=== PATIENT | male | born 1935 | race Caucasian/White ===

== ENCOUNTER 2020-08-13 11:19 | Outpatient (REF) | payer MEDICARE, SELFPAY | END 2020-08-13 11:20 | disposition home or self-care (01) | LOC: HO.WFDLDS 11:19 | PROVIDERS: Visit Provider Internal Medicine | DX: Z20.828 Contact with and (suspected) exposure to other viral communicable diseases (principal) | CPT/HCPCS: C9803; U0003 ==

== ENCOUNTER 2022-11-17 09:35 | Outpatient (REF) | payer MEDICARE, BC, SELFPAY ==
--- NOTE | ~2022-11-17 | XR_ITS ---
EXAMINATION: XR KNEE, RIGHT XR KNEE, LEFT XR KNEE STANDING, BILATERAL CLINICAL INDICATION: Pain. COMPARISON: None available. TECHNIQUE: 2 views AP bilateral knee standing. 2 views of each knee. FINDINGS: AP BILATERAL KNEE STANDING: There is genu varus deformity of both knees with severe loss of medial compartment joint space and periarticular spurring. There is [id number] articulation of the medial compartments. The lateral compartment joint is minimally reduced. No acute fracture or loose body seen. RIGHT KNEE: There is moderate loss of patellofemoral compartment joint space with superior patellar spurring. There is small suprapatellar joint effusion. No loose bodies seen. LEFT KNEE: There is loss of patellofemoral compartment joint space with periarticular spurring. No loose body seen. There is mild suprapatellar joint effusion. No acute fracture or dislocation. XR/XR knee RT 2V IMPRESSION: 1. Severe degenerative arthritic changes medial compartment both knees with genu varus deformity. 2. Moderate degenerative arthritic changes patellofemoral compartment both knees with mild suprapatellar joint effusion. 3. There is no visible acute fracture, dislocation or lytic process seen.
--- NOTE | ~2022-11-17 | XR_ITS ---
EXAMINATION: XR KNEE, RIGHT XR KNEE, LEFT XR KNEE STANDING, BILATERAL CLINICAL INDICATION: Pain. COMPARISON: None available. TECHNIQUE: 2 views AP bilateral knee standing. 2 views of each knee. FINDINGS: AP BILATERAL KNEE STANDING: There is genu varus deformity of both knees with severe loss of medial compartment joint space and periarticular spurring. There is [id number] articulation of the medial compartments. The lateral compartment joint is minimally reduced. No acute fracture or loose body seen. RIGHT KNEE: There is moderate loss of patellofemoral compartment joint space with superior patellar spurring. There is small suprapatellar joint effusion. No loose bodies seen. LEFT KNEE: There is loss of patellofemoral compartment joint space with periarticular spurring. No loose body seen. There is mild suprapatellar joint effusion. No acute fracture or dislocation. XR/XR knee standing BI IMPRESSION: 1. Severe degenerative arthritic changes medial compartment both knees with genu varus deformity. 2. Moderate degenerative arthritic changes patellofemoral compartment both knees with mild suprapatellar joint effusion. 3. There is no visible acute fracture, dislocation or lytic process seen.
--- NOTE | ~2022-11-17 | XR_ITS ---
EXAMINATION: XR KNEE, RIGHT XR KNEE, LEFT XR KNEE STANDING, BILATERAL CLINICAL INDICATION: Pain. COMPARISON: None available. TECHNIQUE: 2 views AP bilateral knee standing. 2 views of each knee. FINDINGS: AP BILATERAL KNEE STANDING: There is genu varus deformity of both knees with severe loss of medial compartment joint space and periarticular spurring. There is [id number] articulation of the medial compartments. The lateral compartment joint is minimally reduced. No acute fracture or loose body seen. RIGHT KNEE: There is moderate loss of patellofemoral compartment joint space with superior patellar spurring. There is small suprapatellar joint effusion. No loose bodies seen. LEFT KNEE: There is loss of patellofemoral compartment joint space with periarticular spurring. No loose body seen. There is mild suprapatellar joint effusion. No acute fracture or dislocation. XR/XR knee LT 2V IMPRESSION: 1. Severe degenerative arthritic changes medial compartment both knees with genu varus deformity. 2. Moderate degenerative arthritic changes patellofemoral compartment both knees with mild suprapatellar joint effusion. 3. There is no visible acute fracture, dislocation or lytic process seen.
== END 2022-11-17 09:36 | disposition home or self-care (01) ==
LOC: HO.HOSX 09:35
PROVIDERS: PCP Internal Medicine; Visit Provider Orthopaedic Surgery
DX: M17.0 Bilateral primary osteoarthritis of knee (principal); E11.9 Type 2 diabetes mellitus without complications; M21.169 Varus deformity, not elsewhere classified, unspecified knee
CPT/HCPCS: 20610; 73560; 73565; 99202; J1100

== ENCOUNTER 2023-05-14 14:53 | Outpatient (AMB) | payer MEDICARE, BC, SELFPAY ==
--- NOTE | 2023-05-14 15:02 | A.OFFVIS_ITS ---
Intake Intake Visit Reasons: ov- B/L Knee OA Intake Note: The patient agreed to use of a medical office professional instructor during this encounter. Scribed for Dr. Niko Freitas by Sarah Sneed medical office professional instructor, on 05/14/2023 at 3:10 pm EST. Diaz is an 87 year old male who presents today for a follow up of his bilateral knee OA. Last injection done 11/17/22. Pateint reports adequate releif and would like to repeat. Allergies lisinopril Allergy (Verified 11/17/22 09:55) Unknown HPI ov- B/L Knee OA HPI Details Joe Guzman is an 87 year old male who presents today for a follow up of his bilateral knee OA. States he walks regularly and stairs can be challenging. Reports injections has helped him in the past. Sd is interested injections today. [facility] Social History (Updated 11/17/22 @ 10:05 by Emerald Tejada [facility]) Current occupational status: retired and disabled Current occupation: rt hand Physical Exam Const General: cooperative, healthy appearing, no acute distress, well developed and alert HEENT Head: Yes normal to inspection, Yes normocephalic and Yes atraumatic Mouth: moist mucous membranes Eyes General: appearance normal, both eyes and all related structures EOM: EOMs intact bilaterally Chest Other: no audible wheezing. Resp Other: No audible wheezing Effort & Inspection: normal respiratory effort Cardio Other: Radial pulse palpable with no rythmic abnormalities Back/Spine/Pelvis Cervical Spine: normal cervical lordosis Skin General skin exam: no rashes or lesions noted Neuro General: no focal motor deficits Extrem Other: Varus bilateral knees. Medial compartment tenderness to palpation left greater than right. 10-120 degrees motion. No acute discomfort. Psych Appearance: grossly normal and well kempt Mental Status: mental status grossly normal Speech and movement: Normal speech and movement present Affect: normal affect Attitude: cooperative Office Procedures Joint Injection/Drain Joint Injection/Drain Details: Injected 1 mL of Decadron and 3 mL 1% lidocaine and 3 mL of 0.25% Marcaine. Site was prepped using aseptic technique. Patient tolerated the procedure well. Primary Site: right knee Secondary Site: left knee Coding - Large joint - Glenohumeral/Tronchanteric Bursa/Intraarticular Procedure code (CPT) selection complete Results Reviewed Results Reviewed: 05/14/23 15:04 BUPivacaine MPF 0.25 % [Sensorcaine-MPF 0.25% 10 ML] 10 ml .ROUTE .STK-MED ONE Lidocaine HCl 1 % [Xylocaine 1 %] 2 ml .ROUTE .STK-MED ONE Lidocaine HCl 2 % MPF [Xylocaine 2 % MPF] 5 ml .ROUTE .STK-MED ONE 05/14/23 15:05 dexAMETHasone sod phosphate [Decadron] 4 mg .ROUTE .STK-MED ONE I personally reviewed relevant radiographs. Severe bilateral knee OA, varus pattern Assessment & Plan Assessment & Plan (1) Osteoarthritis of left knee: Code(s): M17.12 - Unilateral primary osteoarthritis, left knee Plan: I injected his left knee today. (2) Osteoarthritis of right knee: Code(s): M17.11 - Unilateral primary osteoarthritis, right knee Plan: I injected his right knee today. (3) Varus deformity of knee: Code(s): M21.169 - Varus deformity, not elsewhere classified, unspecified knee Plan: Severe bilateral knee OA with deformity. Not a surgical candidate given age and relative paucity of symptoms (4) Diabetes mellitus: Code(s): E11.9 - Type 2 diabetes mellitus without complications Plan: Informed of the hyperglycemic effects of steroid injections. Coding Level of Care Code Est Pt Level 4 (04332) Diagnoses Osteoarthritis of left knee M17.12 Osteoarthritis of right knee M17.11 Varus deformity of knee M21.169 Diabetes mellitus E11.9 CPT Codes Coding - 12067 Large joint: 25140 - Large joint ([id number]) Coding - Joint 7: 12989 - Glenohumeral/Tronchanteric Bursa/Intraarticular ([id number])
== END 2023-05-14 16:05 | disposition home or self-care (01) ==
PROVIDERS: PCP Internal Medicine; Visit Provider Orthopaedic Surgery
DX: M17.0 Bilateral primary osteoarthritis of knee (principal); M21.169 Varus deformity, not elsewhere classified, unspecified knee; E11.9 Type 2 diabetes mellitus without complications
CPT/HCPCS: 20610

== ENCOUNTER → 2023-05-14 14:53 | Outpatient (BNVA) | payer MEDICARE, BC, SELFPAY | PROVIDERS: PCP Internal Medicine; Visit Provider Orthopaedic Surgery | DX: M17.12 Unilateral primary osteoarthritis, left knee (principal); M17.11 Unilateral primary osteoarthritis, right knee; M21.169 Varus deformity, not elsewhere classified, unspecified knee; E11.9 Type 2 diabetes mellitus without complications | CPT/HCPCS: 20610; J1100 ==

== ENCOUNTER 2023-09-27 09:01 | Outpatient (AMB) | payer MEDICARE, BC, SELFPAY ==
--- NOTE | 2023-09-27 09:07 | A.OFFVIS_ITS ---
Intake Intake Visit Reasons: OV - Severe B/L Knee OA - Last Inj 05/14/23 Intake Note: Joe is a 88 year old male who presents today for a follow up of his severe bilateral knee osteoarthritis. Hx of DM. Last injections done bilaterally on 05/14/2023. Patient would like to repeat injections on both of the knees today. Allergies lisinopril Allergy (Verified 11/17/22 09:55) Unknown HPI OV - Severe B/L Knee OA - Last Inj 05/14/23 HPI Details Joe is an 88 year old Diabetic man who returns today for a follow up of his bilateral knee OA. He says he walks regularly and stairs can be challenging for him. He reports injections has helped him in the past, he was last injected bilaterally on 05/14/23. He is interested in repeat injections today. [facility] Social History Current occupational status: retired and disabled Current occupation: rt hand Review of Systems Const All systems reviewed & are unremarkable except as noted in HPI and below Physical Exam Const General: no acute distress, alert and awake Orientation/consciousness: patient oriented x3 HEENT Head: Yes normocephalic and Yes atraumatic Eyes EOM: EOMs intact bilaterally Resp Effort & Inspection: normal respiratory effort and able to speak in complete sentences Cardio Jugular venous distension: no JVD Skin General skin exam: turgor normal Rashes: no rashes Neuro General: patient oriented x3 Extrem Other: skin c/d/i bilateral knees. There is tenderness to palpation along the medial joint line bilaterally. There is no effusion. Psych Appearance: grossly normal Affect: normal affect Attitude: cooperative Office Procedures Joint Injection/Drain Joint Injection/Drain Details: Injected 1 mL of Decadron and 3 mL 1% lidocaine and 3 mL of 0.25% Marcaine. Site was prepped using aseptic technique. Patient tolerated the procedure well. Primary Site: right knee Secondary Site: left knee Approach Used: anterolateral Coding - Large joint - Glenohumeral/Tronchanteric Bursa/Intraarticular Procedure code (CPT) selection complete Assessment & Plan Assessment & Plan (1) Osteoarthritis of left knee: Code(s): M17.12 - Unilateral primary osteoarthritis, left knee Plan: Injected bilateral knees (2) Osteoarthritis of right knee: Code(s): M17.11 - Unilateral primary osteoarthritis, right knee (3) Diabetes mellitus: Code(s): E11.9 - Type 2 diabetes mellitus without complications Plan: Informed patient of the hyperglycemic effects of steroids. Plan Prepared for Niko Freitas MD by Mike Francisco, medical affairs leader, on 09/27/23 at 9:12 AM, EST. Coding Level of Care Code Est Pt Level 4 (36571) Diagnoses Osteoarthritis of left knee M17.12 Osteoarthritis of right knee M17.11 Diabetes mellitus E11.9 CPT Codes Coding - 84759 Large joint: 44175 - Large joint ([id number]) Coding - Joint 7: 11759 - Glenohumeral/Tronchanteric Bursa/Intraarticular ([id number])
== END 2023-09-27 09:28 | disposition home or self-care (01) ==
PROVIDERS: PCP Internal Medicine; Visit Provider Orthopaedic Surgery
DX: M17.0 Bilateral primary osteoarthritis of knee (principal); E11.9 Type 2 diabetes mellitus without complications
CPT/HCPCS: 20610; 99214

== ENCOUNTER → 2023-09-27 09:01 | Outpatient (BNVA) | payer MEDICARE, BC, SELFPAY | PROVIDERS: PCP Internal Medicine; Visit Provider Orthopaedic Surgery | DX: M17.0 Bilateral primary osteoarthritis of knee (principal); E11.9 Type 2 diabetes mellitus without complications | CPT/HCPCS: 20610; 99212; J0665; J1100 ==

== ENCOUNTER 2023-12-27 09:07 | Outpatient (AMB) | payer MEDICARE, BC, SELFPAY ==
--- NOTE | 2023-12-27 09:21 | MHC.OFFVIS ---
Vital Signs 12/27/23 09:24 Height 5 ft 9 in Weight 160 lb BMI 23.6 Intake Visit Reasons: OV-B/L knee OA- inj. 09/27/23 Allergies lisinopril Allergy (Verified 12/27/23 09:23) Unknown HPI HPI OV-B/L knee OA- inj. 09/27/23: Details: Joe is a 88 year old male who presents today for a follow up of his severe bilateral knee osteoarthritis. Hx of DM. Last injections done bilaterally on 09/27/23. Patients reports last injections were helpful and provided relief for two months. He would like to discuss injections again today. [facility] Social History Current occupational status: retired and disabled Current occupation: rt hand Physical Exam Vital Signs: BMI result Body Mass Index 23.6 Const General: no acute distress, alert and awake Orientation/consciousness: patient oriented x3 HEENT Head: Yes normocephalic and Yes atraumatic Eyes EOM: EOMs intact bilaterally Resp Effort & Inspection: normal respiratory effort and able to speak in complete sentences Cardio Jugular venous distension: no JVD Skin General skin exam: turgor normal Rashes: no rashes Neuro General: patient oriented x3 Extrem Other: skin c/d/i bilateral knees. There is tenderness to palpation along the medial joint line bilaterally. There is no effusion. Psych Appearance: grossly normal Affect: normal affect Attitude: cooperative Office Procedures Joint Injection/Drain Joint Injection/Drain Details: Injected 1 mL of Decadron and 3 mL 1% lidocaine and 3 mL of 0.25% Marcaine. Site was prepped using aseptic technique. Patient tolerated the procedure well. Primary Site: right knee Secondary Site: left knee Approach Used: anterolateral Coding - Large joint - Glenohumeral/Tronchanteric Bursa/Intraarticular Procedure code (CPT) selection complete Results Reviewed Results Reviewed: I personally reviewed relevant radiographs. Severe bilateral knee OA, varus pattern Assessment & Plan Assessment & Plan (1) Osteoarthritis of left knee: Code(s): M17.12 - Unilateral primary osteoarthritis, left knee Category: Medical Plan: Injected bilateral knees (2) Osteoarthritis of right knee: Code(s): M17.11 - Unilateral primary osteoarthritis, right knee Category: Medical (3) Diabetes mellitus: Code(s): E11.9 - Type 2 diabetes mellitus without complications Category: Medical Plan: Informed patient of the hyperglycemic effects of steroids. Plan Prepared for Niko Freitas MD by Mike Francisco, medical insurance verifier, on 09/27/23 at 9:12 AM, EST. Coding Level of Care Code Est Pt Level 3 (21645) Diagnoses Osteoarthritis of left knee M17.12 Osteoarthritis of right knee M17.11 Diabetes mellitus E11.9 CPT Codes Coding - 57706 Large joint: 70901 - Large joint ([id number]) Coding - Joint 7: 30066 - Glenohumeral/Tronchanteric Bursa/Intraarticular ([id number])
[2023-12-27 09:24] VITALS: BMI 23.6
== END 2023-12-27 09:44 | disposition home or self-care (01) ==
PROVIDERS: PCP Internal Medicine; Visit Provider Orthopaedic Surgery
DX: M17.0 Bilateral primary osteoarthritis of knee (principal); E11.9 Type 2 diabetes mellitus without complications
CPT/HCPCS: 20610

== ENCOUNTER → 2023-12-27 09:07 | Outpatient (BNVA) | payer MEDICARE, BC, SELFPAY | PROVIDERS: PCP Internal Medicine; Visit Provider Orthopaedic Surgery | DX: M17.0 Bilateral primary osteoarthritis of knee (principal); E11.9 Type 2 diabetes mellitus without complications | CPT/HCPCS: 20610; J0665; J1100 ==

== ENCOUNTER 2024-03-04 09:03 | Outpatient (AMB) | payer MEDICARE, BC, SELFPAY ==
[2024-03-04 09:43] VITALS: BP 120/65; PULSE 56; RESP 12; O2SAT 97; BMI 24.6
--- NOTE | 2024-03-04 09:43 | MHC.PC.OV ---
Vital Signs 03/04/24 09:43 Height 5 ft 6 in Weight 152 lb 4 oz BMI 24.6 BP 120/65 Blood Pressure Location Rt brachial Position Sitting Respiration 12 Pulse 56 Pulse Source Pulse Oximeter Pulse Oximetry (%) 97 Oxygen Delivery Method Room Air Intake Visit Reasons: NILO from [facility] Intake Note: Patient is here with his for a transfer [facility] care [facility] to [facility] [place]. Handstitching Machine Collar Feller Required: No Accompanied by: Spouse Allergies lisinopril Allergy (Verified 12/27/23 09:23) Unknown Tobacco use date assessed: 03/04/24 Fall risk assessment: No Falls in past year Last assessed Fall Risk: 03/04/24 Dental Screening Dental Screen Date: 03/04/24 Did you have a dental visit in the last 12 months?: No Did you have a dental problem in the last 6 months where you did not have access to dental care?: No Was dental information given to patient?: Patient declined HPI HPI Comments History of Present Illness Details The patient is a 87-year-old male with a past medical history of type 2 diabetes, hypertension, CKD, memory loss, AAA repair BPH, skin cancer, osteoarthritis presenting for follow-up Type 2 diabetes: Stable off medications. CKD, AA. Annual eye exam is up-to-date Cardiovascular: Hypertension, AAA hyperlipidemia. On hydrochlorothiazide 25 mg daily, amlodipine 5 mg daily, pravastatin 80 mg daily. Allergy to lisinopril (lip swelling). Denies headache dizziness chest pain. COPD: Follows with pulmonary. Stable on Bevespi. Chronic dyspnea which is stable.Thereafter he underwent chest CT with evidence of moderate emphysema and perhaps chronic bronchitis. Memory loss: Increased memory loss. continues donepezil. His helps him to take care of his medications etc.. He does have bilateral cerumen impaction when can decrease his hearing. Musculoskeletal: Bilateral knee pain. Moderate to severe OA. Not Orthopedics and a steroid injection which he did not found helpful. Takes Tylenol p.r.n. uses topical analgesic ROS CONSTITUTIONAL: Denies weight loss, fever and chills. HEENT: right eye discharge and itching RESPIRATORY: Denies SOB and cough. CV: Denies palpitations and CP GI: Denies abdominal pain, nausea, vomiting and diarrhea. : Denies dysuria and urinary frequency. MSK: Denies new myalgia and joint pain. SKIN: Denies rash and pruritus. NEUROLOGICAL: Denies headache PSYCHIATRIC: Denies recent changes in mood. PHYSICAL EXAM: GENERAL: Alert and oriented x 3. NAD EYES: EOMI. Anicteric. HENT: Moist mucous membranes. mild scleral icterus. crust and exudate-rightNo cervical lymphadenopathy. LUNGS: Clear to auscultation bilaterally. CARDIOVASCULAR: Regular rate and rhythm. No murmur. No JVD. ABDOMEN: Soft, non-tender +bs EXTREMITIES: No edema. Non-tender. SKIN: No rashes or lesions. Warm. NEUROLOGIC: Apparent memory loss PSYCHIATRIC: Cooperative. Appropriate mood and affect [facility] Medical History Aneurysm Surgical History S/P cerebral aneurysm operation Family History Other No pertinent family history Social History Household Members: Spouse Housing: House Are you a primary account executive healthcare to a significant other at home: No Alcohol intake: former Patient Tobacco Use Status: Former Tobacco user Tobacco use type: Cigarette Cigarette Packs Per Day: 1 Cigarettes Per Day: 20 e-Cigarette/Vaping Use: Never Used service: Yes ([employer] 6 years) Current occupational status: retired and disabled Current occupation: rt hand Current occupational exposures/hazards: No Cognitive needs: Yes Hearing needs: Yes Vision needs: Yes (Has an eye doctor) Questionnaire PHQ-9 Over the last 2 weeks, how often have you been bothered by any of the following problems? 1. Little interest or pleasure in doing things: not at all 2. Feeling down, depressed, or hopeless: not at all 3. Trouble falling or staying asleep, or sleeping too much: not at all 4. Feeling tired or having little energy: several days 5. Poor appetite or overeating: several days 6. Feeling bad about yourself - or that you are a failure or have let yourself or your family down: not at all 7. Trouble concentrating on things, such as reading the newspaper or watching television: several days 8. Moving or speaking so slowly that other people could have noticed. Or the opposite - being so fidgety or restless that you have been moving around a lot more than usual: not at all 9. Thoughts that you would be better off or of hurting yourself in some way: not at all Total score: 3 Depression Screening Interpretation: Negative (neg) Depression Screening Done: Yes 55226 - PHQ-9 Billing: Yes Source: Developed by Drs. Pelon Toscano, Silvia Fontana, Quique Rhodes and colleagues, with an educational yael from [employer]. Thrive Questionnaire Date Thrive assessed: 03/04/24 I am a: Patient What is your living situation today?: I have a steady place to live Within the past 12 months, did the food you bought not last and you didn't have the money to get more?: Never true Within the past 12 months, did you worry whether your food would run out before you got money to buy more?: Never true Do you have trouble paying for medicines?: I choose not to answer this question Do you have trouble getting transportation to medical appointments?: I choose not to answer this question Do you have trouble paying your heating and electricity bill?: I choose not to answer this question Do you have trouble taking care of your child, family member or friend?: I choose not to answer this question Do you have trouble with day-to-day activities such as bathing, preparing meals, shopping, managing finances, etc.?: I choose not to answer this question Are you currently unemployed and looking for a job?: I choose not to answer this question Are you interested in more education?: I choose not to answer this question Please select the resources that you would like help with: None Currently or been in a relationship where the following occur: No concerns reported THRIVE Score: 0 AUDIT C Alcohol Use Questionnaire (AUDIT-C) 1. How often do you have a drink containing alcohol?: Never 3. How often do you have six or more drinks on one occasion?: Never Total Score: 0 LEWIS-7 AMB Questionnaire LEWIS-7 Date LEWIS - 7 assessed: 03/04/24 Source: Developed by Drs. Pelon Toscano, Silvia Fontana, Quique Rhodes and colleagues, with an educational yael from [employer]. LEWIS-7 Assessment Billing LEWIS-7 Assessment Tool: pt declined-do not bill Physical exam (Primary Care) Vital Signs: Last Vital Signs Pulse 56 03/04/24 09:43 Resp 12 03/04/24 09:43 BP 120/65 03/04/24 09:43 Pulse Ox 97 03/04/24 09:43 Oxygen Delivery Method Room Air 03/04/24 09:43 BMI result Body Mass Index 24.6 Tobacco/Smoking Status: Tobacco use Status Tobacco use date assessed 03/04/24 03/04/24 09:54 Patient Tobacco Use Status Former Tobacco user 03/04/24 09:54 Tobacco use type Cigarette 03/04/24 09:54 e-Cigarette/Vaping Use Never Used 03/04/24 09:54 Depression Screening Interpretation: Negative (neg) Thrive Assessment: Date of Thrive Assessment Date Thrive assessed 03/04/24 03/04/24 10:09 Currently or been in a relationship where the following occur: No concerns reported Assessment and Plan Assessment & Plan (1) Diabetes mellitus: Code(s): E11.9 - Type 2 diabetes mellitus without complications Qualifiers: Chronic kidney disease stage: stage 3 (moderate) Chronic kidney disease stage 3 subtype: unspecified whether 3a or 3b Diabetes mellitus complication detail: with chronic kidney disease Diabetes mellitus complication status: with kidney complications Diabetes mellitus group home insulin use: without terminal operations supervisor use Diabetes mellitus type: type 2 Qualified Code(s): E11.22 - Type 2 diabetes mellitus with diabetic chronic kidney disease; N18.30 - Chronic kidney disease, stage 3 unspecified Plan: well controlled. labs ordered. (2) High cholesterol: Code(s): E78.00 - Pure hypercholesterolemia, unspecified (3) Osteoarthritis of left knee: Code(s): M17.12 - Unilateral primary osteoarthritis, left knee Qualifiers: Osteoarthritis type: primary Qualified Code(s): M17.12 - Unilateral primary osteoarthritis, left knee (4) Osteoarthritis of right knee: Code(s): M17.11 - Unilateral primary osteoarthritis, right knee Qualifiers: Osteoarthritis type: primary Qualified Code(s): M17.11 - Unilateral primary osteoarthritis, right knee Plan: continue ortho follow up PRN Orders: Orders Hemoglobin A1c Today E11.22 - Type 2 diabetes mellitus with diabetic chronic kidney disease, E78.00 - Pure hypercholesterolemia, unspecified, N18.30 - Chronic kidney disease, stage 3 unspecified, Z13.0 - Encounter for screening for diseases of the blood and blood-forming organs and certain disorders involving the immune mechanism Comprehensive Met. Panel Today E11.22 - Type 2 diabetes mellitus with diabetic chronic kidney disease, E78.00 - Pure hypercholesterolemia, unspecified, N18.30 - Chronic kidney disease, stage 3 unspecified, Z13.0 - Encounter for screening for diseases of the blood and blood-forming organs and certain disorders involving the immune mechanism Complete Blood Count Auto Diff Today E11.22 - Type 2 diabetes mellitus with diabetic chronic kidney disease, E78.00 - Pure hypercholesterolemia, unspecified, N18.30 - Chronic kidney disease, stage 3 unspecified, Z13.0 - Encounter for screening for diseases of the blood and blood-forming organs and certain disorders involving the immune mechanism Medications: New besifloxacin 0.6% administer doses at least 4 hours apart 1 drp ophthalmic-Right TID 5 mL 0RF 7 days Coding Level of Care Code Est Pt Level 4 (75062) Complex EM visit Add On G2211 Diagnoses Type 2 diabetes mellitus with stage 3 chronic kidney disease, without long-term current use of insulin, unspecified whether stage 3a or 3b CKD E11.22; N18.30 Chronic kidney disease stage: stage 3 (moderate) Chronic kidney disease stage 3 subtype: unspecified whether 3a or 3b Diabetes mellitus complication detail: with chronic kidney disease Diabetes mellitus complication status: with kidney complications Diabetes mellitus terminal operations supervisor insulin use: without terminal operations supervisor use Diabetes mellitus type: type 2 High cholesterol E78.00 Primary osteoarthritis of left knee M17.12 Osteoarthritis type: primary Primary osteoarthritis of right knee M17.11 Osteoarthritis type: primary
== END 2024-03-04 10:51 | disposition home or self-care (01) ==
PROVIDERS: PCP Internal Medicine; Visit Provider Internal Medicine
DX: E11.22 Type 2 diabetes mellitus with diabetic chronic kidney disease (principal); N18.30 Chronic kidney disease, stage 3 unspecified; E78.00 Pure hypercholesterolemia, unspecified; M17.0 Bilateral primary osteoarthritis of knee
CPT/HCPCS: 99214; G2211

== ENCOUNTER 2024-03-04 11:13 | Outpatient (REF) | payer MEDICARE, BC, SELFPAY ==
[2024-03-04 13:53] LABS: MANUAL DIFF FLAG NO
[2024-03-04 14:02] LABS: Basophils Percent Auto 0.2 % (0-2); Eosinophils Absolute Auto 0.1 X10*3/uL (0.0-0.4); Eosinophils Percent Auto 1.2 % (0-4); Hematocrit 36.4 % (42.0-52.0); Hemoglobin 12.2 g/dl (14.0-18.0); Imm Gran Abs Auto 0.02 X10*3/uL (0.00-0.03); Imm Gran Pct Auto 0.4 % (0.0-0.4); Lymphocytes Absolute Auto 0.9 X10*3/uL (1.2-4.9); Mean Corpuscular HGB Conc 33.5 g/dl (31.0-36.0); Mean Corpuscular Hemoglobin 31.9 pg (27.0-33.0); Mean Corpuscular Volume 95.3 fL (80.0-98.0); Mean Platelet Volume 10.5 fL (9.4-12.4); Monocytes Absolute Auto 0.5 X10*3/uL (0.1-1.2); Monocytes Percent Auto 9.3 % (2-11); Neutrophils Absolute Auto 4.2 x10*3/uL (2.0-8.3); Neutrophils Percent Auto 73.9 % (45-73); Platelet Count 169 X10*3/uL (160-400); Red Blood Count 3.82 X10*6/uL (4.60-5.80); Red Cell Distribution Width 12.3 % (11.0-16.0); White Blood Count 5.7 X10*3/uL (4.8-10.8)
[2024-03-04 14:15] LABS: Estimated Average Glucose 123 mg/dL; Hemoglobin A1c % 5.9 % (<6.0)
[2024-03-04 14:16] LABS: Alanine Aminotransferase 14 U/L (0-40); Albumin Level 3.9 g/dL (3.5-5.0); Alkaline Phosphatase 58 U/L (39-117); Anion Gap 12 (12-20); Aspartate Amino Transferase 24 U/L (5-37); Bilirubin Total 0.6 mg/dL (0.0-1.0); Blood Urea Nitrogen 23 mg/dL (9-16); Calcium 9.4 mg/dL (8.4-10.2); Carbon Dioxide 29 mmol/L (22-29); Chloride 97 mmol/L (96-108); Estimated Glomerular Filt Rate > 60; Glucose Random 87 mg/dL (60-115); Potassium 3.8 mmol/L (3.3-5.1); Sodium 134 mmol/L (135-145); Total Protein 6.8 g/dL (6.5-8.0)
== END 2024-03-04 11:14 | disposition home or self-care (01) ==
LOC: HO.WFDLDS 11:13
PROVIDERS: Visit Provider Internal Medicine
DX: E11.22 Type 2 diabetes mellitus with diabetic chronic kidney disease (principal); N18.30 Chronic kidney disease, stage 3 unspecified; E78.00 Pure hypercholesterolemia, unspecified; Z13.0 Encounter for screening for diseases of the blood and blood-forming organs and certain disorders involving the immune mechanism
CPT/HCPCS: 36415; 80053; 83036; 85025

== ENCOUNTER 2024-03-28 08:40 | Outpatient (AMB) | payer MEDICARE, BC, SELFPAY ==
--- NOTE | 2024-03-28 09:07 | A.OFFVIS_ITS ---
Vital Signs 03/28/24 09:08 Height 5 ft 6 in Weight 162 lb BMI 26.1 Intake Visit Reasons: OV-B/L knee OA- inj. last inj. 12/27/23 Intake Note: Joe is an 88 year old male who presents today with yang for a follow up of his bilateral knee OA, last injections were done on 12/27/2023. Hx of DM. Patient reports that this injection was helpful but only for about 1 month. He is interested in haing Gel injections. Allergies lisinopril Allergy (Verified 12/27/23 09:23) Unknown HPI HPI OV-B/L knee OA- inj. last inj. 12/27/23: Details: Joe is here for bilateral knee osteoarthritis. He had injections about 3 months ago which were helpful for about a month. He continues to have pain. We have had long discussions about treatment options and surgery is not something that we have decided feels appropriate. [facility] Medical History Aneurysm Surgical History S/P cerebral aneurysm operation Family History Other No pertinent family history Social History Household Members: Spouse Housing: House Are you a primary primary care provider to a significant other at home: No 75 years or older and lives alone: No Alcohol intake: former Patient Tobacco Use Status: Former Tobacco user Tobacco use type: Cigarette Cigarette Packs Per Day: 1 Cigarettes Per Day: 20 e-Cigarette/Vaping Use: Never Used service: Yes ([employer] 6 years) Current occupational status: retired and disabled Current occupation: rt hand Current occupational exposures/hazards: No Cognitive needs: Yes Hearing needs: Yes Vision needs: Yes (Has an eye doctor) Physical Exam Vital Signs: BMI result Body Mass Index 26.1 Const General: no acute distress, alert and awake Orientation/consciousness: patient oriented x3 HEENT Head: Yes normocephalic and Yes atraumatic Eyes EOM: EOMs intact bilaterally Resp Effort & Inspection: normal respiratory effort and able to speak in complete sentences Cardio Jugular venous distension: no JVD Skin General skin exam: turgor normal Rashes: no rashes Neuro General: patient oriented x3 Extrem Other: skin c/d/i bilateral knees. There is tenderness to palpation along the medial joint line bilaterally. There is no effusion. Psych Appearance: grossly normal Affect: normal affect Attitude: cooperative Office Procedures Joint Injection/Aspiration Joint Injection/Aspiration Details: Injected Durolane. Site was prepped using aseptic technique. Patient tolerated the procedure well. Primary Site: right knee Secondary Site: left knee Approach Used: anterolateral Coding - Large joint - Glenohumeral/Tronchanteric Bursa/Intraarticular Procedure code (CPT) selection complete Assessment & Plan Assessment & Plan (1) Bilateral primary osteoarthritis of knee: Code(s): M17.0 - Bilateral primary osteoarthritis of knee Category: Medical Plan: This is an 88-year-old gentleman with bilateral knee osteoarthritis. Steroid injections have been minimally helpful and we discussed other treatment options. I recommend viscosupplementation. He agreed to proceed forward with this. Bilateral knees were injected with dural riley. I described what his expectations should be an he can follow up see me and an as-needed basis. Coding Level of Care Code Est Pt Level 4 (45179) Diagnoses Bilateral primary osteoarthritis of knee M17.0 CPT Codes Coding - Large joint: 39307 - Large joint ([id number]) Coding - Joint 7: 44880 - Glenohumeral/Tronchanteric Bursa/Intraarticular ([id number])
[2024-03-28 09:08] VITALS: BMI 26.1
== END 2024-03-28 10:16 | disposition home or self-care (01) ==
PROVIDERS: PCP Internal Medicine; Visit Provider Orthopaedic Surgery
DX: M17.0 Bilateral primary osteoarthritis of knee (principal)
CPT/HCPCS: 20610; 99213

== ENCOUNTER → 2024-03-28 08:40 | Outpatient (BNVA) | payer MEDICARE, BC, SELFPAY | PROVIDERS: PCP Internal Medicine; Visit Provider Orthopaedic Surgery | DX: M17.0 Bilateral primary osteoarthritis of knee (principal) | CPT/HCPCS: 20610; 99212; J7318 ==

== ENCOUNTER 2024-06-16 13:17 | Outpatient (AMB) | payer MEDICARE, BC, SELFPAY ==
[2024-06-16 13:19] VITALS: BP 122/70; PULSE 75; O2SAT 95; BMI 23.4
--- NOTE | 2024-06-16 13:19 | MHC.PC.OV ---
Vital Signs 06/16/24 13:19 Height 5 ft 6 in Weight 145 lb 4 oz BMI 23.4 BP 122/70 Blood Pressure Location Rt brachial Position Sitting Pulse 75 Pulse Source Pulse Oximeter Pulse Oximetry (%) 95 Oxygen Delivery Method Room Air Intake Visit Reasons: MEDICAL RADIATION DOSIMETRIST-Establish Care Allergies lisinopril Allergy (Verified 06/16/24 13:23) Unknown Tobacco use date assessed: 06/16/24 Fall risk assessment: No Falls in past year Last assessed Fall Risk: 06/16/24 Dental Screening Dental Screen Date: 06/16/24 Did you have a dental visit in the last 12 months?: Yes Did you have a dental problem in the last 6 months where you did not have access to dental care?: No Was dental information given to patient?: Patient has dentist HPI HPI Comments History of Present Illness Details The patient is a 87-year-old male with a past medical history of dementia, type 2 diabetes, hypertension, CKD, memory loss, AAA repair BPH, skin cancer, osteoarthritis presenting for follow-up Type 2 diabetes: Stable off medications. A1C 6.1%. Annual eye exam is up-to-date. Denies bothersome neuropathy Cardiovascular: Hypertension, AAA hyperlipidemia. On hydrochlorothiazide 25 mg daily, amlodipine 5 mg daily, pravastatin 80 mg daily. Allergy to lisinopril (lip swelling). Denies headache dizziness chest pain. Blood pressure is well controlled COPD: Evaluated and was following with pulmonary. Stable on current inhalers.. Chronic dyspnea which is stable. Had prior pfts, chest CT with evidence of moderate emphysema and perhaps chronic bronchitis. Memory loss: Increased memory loss. continues donepezil-5mg His helps him to take care of his medications etc.. He does have bilateral cerumen impaction when can decrease his hearing. This is prevalent today. His has to be home all the time. Looking into getting help in the home Musculoskeletal: Bilateral knee pain. Moderate to severe OA. Has beneifited from steroid injection but recent gel injection was not helpful Takes Tylenol p.r.n. uses topical analgesic. ROS see HPI PHYSICAL EXAM: GENERAL: Alert and oriented x 3. NAD EYES: EOMI. Anicteric. HENT: Moist mucous membranes. normal oropharynx LUNGS: Clear to auscultation bilaterally. CARDIOVASCULAR: Regular rate and rhythm. No murmur. No JVD. ABDOMEN: Soft, non-tender +bs EXTREMITIES: No edema. Non-tender. SKIN: No rashes or lesions. Warm. NEUROLOGIC: Apparent memory loss PSYCHIATRIC: Cooperative. Appropriate mood and affect [facility] Medical History Aneurysm Surgical History S/P cerebral aneurysm operation Family History Other No pertinent family history Social History Household Members: Spouse Housing: House Are you a primary home care and home health aides teacher to a significant other at home: No 75 years or older and lives alone: No Alcohol intake: former Patient Tobacco Use Status: Former Tobacco user Tobacco use type: Cigarette Cigarette Packs Per Day: 1 Cigarettes Per Day: 20 e-Cigarette/Vaping Use: Never Used service: Yes ([employer] 6 years) Current occupational status: retired and disabled Current occupation: rt hand Current occupational exposures/hazards: No Cognitive needs: Yes Hearing needs: Yes Vision needs: Yes (Has an eye doctor) Questionnaire PHQ-9 Over the last 2 weeks, how often have you been bothered by any of the following problems? 1. Little interest or pleasure in doing things: not at all 2. Feeling down, depressed, or hopeless: not at all 3. Trouble falling or staying asleep, or sleeping too much: not at all 4. Feeling tired or having little energy: not at all 5. Poor appetite or overeating: not at all 6. Feeling bad about yourself - or that you are a failure or have let yourself or your family down: not at all 7. Trouble concentrating on things, such as reading the newspaper or watching television: not at all 8. Moving or speaking so slowly that other people could have noticed. Or the opposite - being so fidgety or restless that you have been moving around a lot more than usual: not at all 9. Thoughts that you would be better off or of hurting yourself in some way: not at all Total score: 0 Depression Screening Interpretation: Negative Depression Screening Done: Yes 59669 - PHQ-9 Billing: Yes Source: Developed by Drs. Pelon LSilvia Dodge Kurt Kroenke and colleagues, with an educational yael from [employer]. Thrive Questionnaire Date Thrive assessed: 06/16/24 I am a: Patient What is your living situation today?: I have a steady place to live Within the past 12 months, did the food you bought not last and you didn't have the money to get more?: Never true Within the past 12 months, did you worry whether your food would run out before you got money to buy more?: Never true Do you have trouble paying for medicines?: No Do you have trouble getting transportation to medical appointments?: No Do you have trouble paying your heating and electricity bill?: No Do you have trouble taking care of your child, family member or friend?: I choose not to answer this question Do you have trouble with day-to-day activities such as bathing, preparing meals, shopping, managing finances, etc.?: Yes Are you currently unemployed and looking for a job?: No Are you interested in more education?: No Please select the resources that you would like help with: None Currently or been in a relationship where the following occur: No concerns reported THRIVE Score: 0 AUDIT C Alcohol Use Questionnaire (AUDIT-C) 1. How often do you have a drink containing alcohol?: Never 3. How often do you have six or more drinks on one occasion?: Never Total Score: 0 LEWIS-7 AMB Questionnaire LEWIS-7 Date LEWIS - 7 assessed: 06/16/24 Feeling nervous, anxious, or on edge: 0 = Not at all Not being able to stop or control worryin = Not at all Worrying too much about different things: 0 = Not at all Trouble relaxin = Not at all Being so restless that it is hard to sit still: 0 = Not at all Becoming easily annoyed or irritable: 0 = Not at all Feeling afraid as if something awful might happen: 0 = Not at all Total LEWIS-7 score (0-4 normal; 5-9 mild; 10-14 moderate; 15-21 severe): 0 Source: Developed by Silvia Lux Kurt Kroenke and colleagues, with an educational yael from [employer]. LEWIS-7 Assessment Billing LEWIS-7 Assessment Tool: LEWIS-7 Assessment 62560 Physical exam (Primary Care) Vital Signs: Last Vital Signs Pulse 75 06/16/24 13:19 BP 122/70 06/16/24 13:19 Pulse Ox 95 06/16/24 13:19 Oxygen Delivery Method Room Air 06/16/24 13:19 BMI result Body Mass Index 23.4 Tobacco/Smoking Status: Tobacco use Status Tobacco use date assessed 06/16/24 06/16/24 13:28 Patient Tobacco Use Status Former Tobacco user 06/16/24 13:28 Tobacco use type Cigarette 06/16/24 13:28 e-Cigarette/Vaping Use Never Used 06/16/24 13:28 PHQ-9: PHQ-9 Score PHQ-9: Total score 0 06/16/24 21:52 Depression Screening Interpretation: Negative Thrive Assessment: Date of Thrive Assessment Date Thrive assessed 06/16/24 06/16/24 13:28 Currently or been in a relationship where the following occur: No concerns reported Results AMB Hemoglobin A1c AMB Hemoglobin A1c 6.1 % Last Edit by Nasrin Quach CMA on 06/16/24 13:45 Results Reviewed Results Reviewed: Laboratory Last Values Hgb A1c (Clinic) 6.1 % (4.0-6.0) H 06/16/24 13:43 Coding Level of Care Code Est Pt Level 5 (54397) Diagnoses Memory loss R41.3 Bilateral primary osteoarthritis of knee M17.0 Type 2 diabetes mellitus with stage 3 chronic kidney disease, without long-term current use of insulin, unspecified whether stage 3a or 3b CKD E11.22; N18.30 Chronic kidney disease stage: stage 3 (moderate) Chronic kidney disease stage 3 subtype: unspecified whether 3a or 3b Diabetes mellitus complication detail: with chronic kidney disease Diabetes mellitus complication status: with kidney complications Diabetes mellitus termite treater insulin use: without care home use Diabetes mellitus type: type 2 Arthritis M19.90 Additional Codes LEWIS-7 Assessment Billing - LEWIS-7 Assessment Tool: LEWIS-7 Assessment 98648 ([id number]) Time Spent (min) 45 Assessment & Plan Assessment & Plan (1) Memory loss: Code(s): R41.3 - Other amnesia Category: Medical Plan: Increase donepezil to 10mg daily. referral to memory clinic (2) Bilateral primary osteoarthritis of knee: Code(s): M17.0 - Bilateral primary osteoarthritis of knee Category: Medical Plan: Did not benefit much from gel injections. Has gotten some relief from steroid injections and will consider this again soon (3) Diabetes mellitus: Code(s): E11.9 - Type 2 diabetes mellitus without complications Category: Medical Qualifiers: Chronic kidney disease stage: stage 3 (moderate) Chronic kidney disease stage 3 subtype: unspecified whether 3a or 3b Diabetes mellitus complication detail: with chronic kidney disease Diabetes mellitus complication status: with kidney complications Diabetes mellitus care home insulin use: without care home use Diabetes mellitus type: type 2 Qualified Code(s): E11.22 - Type 2 diabetes mellitus with diabetic chronic kidney disease; N18.30 - Chronic kidney disease, stage 3 unspecified Plan: stable off medications (4) Arthritis: Code(s): M19.90 - Unspecified osteoarthritis, unspecified site Category: Medical Plan: follow up ortho. maryam sent. He should be able to repeat steroid injection sin the near future Orders: Orders AMB Hemoglobin A1c Today Z13.9 - Encounter for screening, unspecified Referrals Psychiatry Referral R41.3 - Other amnesia Medications: New diclofenac sodium 1% (Voltaren Arthritis Pain) apply to single knee, ankle, foot; for foot includes sole/toes/top of foot 4 grams topical QID 100 grams 3RF donepezil 10 mg PO BEDTIME 90 tabs 3RF Discontinued donepezil Discontinued Reason: Doctor's Order 5 mg PO BEDTIME 90 days 90 tabs 3RF
== END 2024-06-16 14:08 | disposition home or self-care (01) ==
PROVIDERS: PCP Internal Medicine; Visit Provider Internal Medicine
DX: R41.3 Other amnesia (principal); M17.0 Bilateral primary osteoarthritis of knee; E11.22 Type 2 diabetes mellitus with diabetic chronic kidney disease; N18.30 Chronic kidney disease, stage 3 unspecified; M19.90 Unspecified osteoarthritis, unspecified site

== ENCOUNTER → 2024-06-16 13:17 | Outpatient (BNVA) | payer MEDICARE, BC, SELFPAY | PROVIDERS: PCP Internal Medicine; Visit Provider Internal Medicine | DX: R41.3 Other amnesia (principal); M17.0 Bilateral primary osteoarthritis of knee; E11.22 Type 2 diabetes mellitus with diabetic chronic kidney disease; I12.9 Hypertensive chronic kidney disease with stage 1 through stage 4 chronic kidney disease, or unspecified chronic kidney disease; N18.30 Chronic kidney disease, stage 3 unspecified; Z79.899 Other long term (current) drug therapy | CPT/HCPCS: 83036; 96127; 99212 ==

== ENCOUNTER → 2024-06-23 14:45 | Outpatient (BNVA) | payer MEDICARE, BC, SELFPAY | PROVIDERS: PCP Internal Medicine; Visit Provider Internal Medicine ==

== ENCOUNTER 2024-12-01 14:14 | Outpatient (AMB) | payer MEDICARE, BC, SELFPAY ==
--- NOTE | 2024-12-01 14:34 | A.OFFPC_ITS ---
Vital Signs 12/01/24 14:42 Height 5 ft 6 in Weight 144 lb 2 oz BMI 23.3 BP 100/56 L Blood Pressure Location Rt brachial Position Sitting Respiration 14 Pulse 62 Pulse Source Pulse Oximeter Pulse Oximetry (%) 95 Oxygen Delivery Method Room Air Intake Visit Reasons: Ear complaints Intake Note: Needs ear flushed. Trying to get hearing aids, and [employer] is declining. Cattle Inspector Required: No Accompanied by: Spouse Allergies lisinopril Allergy (Verified 12/01/24 14:38) Unknown Medication List - Last Reconciled 12/07/24 by Edda Flores MD albuterol sulfate 90 mcg/actuation 2 puffs inhalation Q4-6H PRN amlodipine (Norvasc) 5 mg PO DAILY 90 days aspirin (Adult Low Dose Aspirin) 81 mg PO DAILY besifloxacin 0.6% (Besivance) PUT 1 DROP INTO THE RIGHT EYE 3 TIMES A DAY FOR 7 DAYS ADMINISTER DOSES AT LEAST 4 HOURS APART budesonide-formoterol 80-4.5 mcg/actuation (Symbicort) 2 puffs inhalation BID coenzyme Q10 (Ultra CoQ10) 100 mg PO DAILY diclofenac sodium 1% (Voltaren Arthritis Pain) 4 grams topical QID donepezil 10 mg PO BEDTIME hydrochlorothiazide 25 mg PO DAILY pravastatin 80 mg PO DAILY tamsulosin 0.8 mg PO DAILY Tobacco use date assessed: 12/01/24 Fall risk assessment: No Falls in past year Last assessed Fall Risk: 12/01/24 Dental Screening Dental Screen Date: 12/01/24 Did you have a dental visit in the last 12 months?: No Did you have a dental problem in the last 6 months where you did not have access to dental care?: No Was dental information given to patient?: Patient has dentist HPI HPI Comments History of Present Illness Details The patient is a 89-year-old male with a past medical history of dementia, type 2 diabetes, hypertension, CKD, memory loss, AAA repair BPH, skin cancer, osteoarthritis presenting for follow-up He has been trying to get hearing aids from [employer] but they have been telling him that he has too much wax in his ears. His has been putting debrox drops in and trying to keep them clean. Flushed today and curette empolyed with resolution of right sided cerumen but still some persistent left sided. referral will be placed to ENT however the canals are clear enough he should be able to return to [facility] in the interim Type 2 diabetes: Stable off medications. A1C 6.1%. Annual eye exam is up-to-date. Denies bothersome neuropathy Cardiovascular: Hypertension, AAA hyperlipidemia. On hydrochlorothiazide 25 mg daily, amlodipine 5 mg daily, pravastatin 80 mg daily. Allergy to lisinopril (lip swelling). Denies headache dizziness chest pain. Blood pressure is well controlled COPD: Evaluated and was following with pulmonary. Stable on current inhalers.. Chronic dyspnea which is stable. Had prior pfts, chest CT with evidence of moderate emphysema and perhaps chronic bronchitis. Memory loss: Increased memory loss. continues donepezil-5mg His helps him to take care of his medications etc.. Musculoskeletal: Bilateral knee pain. Moderate to severe OA. Has beneifited from steroid injection but recent gel injection was not helpful Takes Tylenol p.r.n. uses topical analgesic. ROS see HPI PHYSICAL EXAM: GENERAL: Alert and oriented x 3. NAD EYES: EOMI. Anicteric. HENT: Moist mucous membranes. normal oropharynx LUNGS: Clear to auscultation bilaterally. CARDIOVASCULAR: Regular rate and rhythm. No murmur. No JVD. ABDOMEN: Soft, non-tender +bs EXTREMITIES: No edema. Non-tender. SKIN: No rashes or lesions. Warm. NEUROLOGIC: Apparent memory loss PSYCHIATRIC: Cooperative. Appropriate mood and affect [facility] Medical History Aneurysm Surgical History S/P cerebral aneurysm operation Family History Sister Dementia Sister Dementia Other FH: mental illness No pertinent family history Substance abuse Social History Household Members: Spouse Housing: House Are you a primary healthcare administration internship to a significant other at home: No 75 years or older and lives alone: No Alcohol intake: former Patient Tobacco Use Status: Former Tobacco user Tobacco use type: Cigarette Cigarette Packs Per Day: 1 Cigarettes Per Day: 20 Years Smoked: 20 e-Cigarette/Vaping Use: Never Used Second Hand Smoke Exposure: No service: Yes ([employer] 6 years) Current occupational status: retired and disabled Current occupation: rt hand Current occupational exposures/hazards: No Cognitive needs: Yes (Dementia) Hearing needs: Yes (need hearing aids) Vision needs: Yes (Has an eye doctor) Questionnaire PHQ-9 Over the last 2 weeks, how often have you been bothered by any of the following problems? 1. Little interest or pleasure in doing things: several days 2. Feeling down, depressed, or hopeless: several days 3. Trouble falling or staying asleep, or sleeping too much: nearly every day 4. Feeling tired or having little energy: several days 5. Poor appetite or overeating: not at all 6. Feeling bad about yourself - or that you are a failure or have let yourself or your family down: not at all 7. Trouble concentrating on things, such as reading the newspaper or watching television: more than half the days 8. Moving or speaking so slowly that other people could have noticed. Or the opposite - being so fidgety or restless that you have been moving around a lot more than usual: several days 9. Thoughts that you would be better off or of hurting yourself in some way: not at all Total score: 9 Depression Screening Interpretation: Positive Depression Screening Follow-up: Declines treatment Depression Screening Done: Yes 26149 - PHQ-9 Billing: Yes Source: Developed by Drs. Pelon Toscano, Silvia Fontana, Quique Rhodes and colleagues, with an educational yael from [employer]. Thrive Questionnaire Date Thrive assessed: 06/16/24 I am a: Patient What is your living situation today?: I have a steady place to live Within the past 12 months, did the food you bought not last and you didn't have the money to get more?: Never true Within the past 12 months, did you worry whether your food would run out before you got money to buy more?: Never true Do you have trouble paying for medicines?: No Do you have trouble getting transportation to medical appointments?: No Do you have trouble paying your heating and electricity bill?: No Do you have trouble taking care of your child, family member or friend?: Yes Do you have trouble with day-to-day activities such as bathing, preparing meals, shopping, managing finances, etc.?: I choose not to answer this question Are you currently unemployed and looking for a job?: I choose not to answer this question Are you interested in more education?: No Please select the resources that you would like help with: None Currently or been in a relationship where the following occur: I choose not to answer THRIVE Score: 0 AUDIT C Alcohol Use Questionnaire (AUDIT-C) 1. How often do you have a drink containing alcohol?: Never Total Score: 0 LEWIS-7 AMB Questionnaire LEWIS-7 Date LEWIS - 7 assessed: 06/16/24 Feeling nervous, anxious, or on edge: 1 = Several days Not being able to stop or control worryin = Several days Worrying too much about different things: 2 = More than half the days Trouble relaxin = Nearly every day Being so restless that it is hard to sit still: 0 = Not at all Becoming easily annoyed or irritable: 1 = Several days Feeling afraid as if something awful might happen: 0 = Not at all Total LEWIS-7 score (0-4 normal; 5-9 mild; 10-14 moderate; 15-21 severe): 8 Source: Developed by Drs. Pelon Toscano, Silvia Fontana, Quique Rhodes and colleagues, with an educational yael from [employer]. Physical exam (Primary Care) Vital Signs: Last Vital Signs Pulse 62 12/01/24 14:42 Resp 14 12/01/24 14:42 BP 100/56 L 12/01/24 14:42 Pulse Ox 95 12/01/24 14:42 Oxygen Delivery Method Room Air 12/01/24 14:42 BMI result Body Mass Index 23.3 Tobacco/Smoking Status: Tobacco use Status Tobacco use date assessed 12/01/24 12/01/24 14:45 Patient Tobacco Use Status Former Tobacco user 12/01/24 14:35 Tobacco use type Cigarette 12/01/24 14:35 e-Cigarette/Vaping Use Never Used 12/01/24 14:35 PHQ-9: PHQ-9 Score PHQ-9: Total score 9 12/07/24 10:32 Depression Screening Interpretation: Positive Depression Screening Follow-up: Declines treatment Thrive Assessment: Date of Thrive Assessment Date Thrive assessed 06/16/24 12/01/24 14:35 Currently or been in a relationship where the following occur: I choose not to answer Coding Level of Care Code Est Pt Level 5 (12443) Diagnoses Bilateral impacted cerumen H61.23 Laterality: bilateral Type 2 diabetes mellitus with stage 3 chronic kidney disease, without long-term current use of insulin, unspecified whether stage 3a or 3b CKD E11.22; N18.30 Chronic kidney disease stage: stage 3 (moderate) Chronic kidney disease stage 3 subtype: unspecified whether 3a or 3b Diabetes mellitus complication detail: with chronic kidney disease Diabetes mellitus complication status: with kidney complications Diabetes mellitus mcc insulin use: without equipment operator intermodal yard use Diabetes mellitus type: type 2 High cholesterol E78.00 Bilateral primary osteoarthritis of knee M17.0 Additional Codes PHQ-9 - 43995 - PHQ-9 Billing: Yes ([id number]) Time Spent (min) 65 Assessment & Plan Assessment & Plan (1) Cerumen impaction: Code(s): H61.20 - Impacted cerumen, unspecified ear Category: Medical Qualifiers: Laterality: bilateral Qualified Code(s): H61.23 - Impacted cerumen, bilateral (2) Diabetes mellitus: Code(s): E11.9 - Type 2 diabetes mellitus without complications Category: Medical Qualifiers: Chronic kidney disease stage: stage 3 (moderate) Chronic kidney disease stage 3 subtype: unspecified whether 3a or 3b Diabetes mellitus complication detail: with chronic kidney disease Diabetes mellitus complication status: with kidney complications Diabetes mellitus mcc insulin use: without mcc use Diabetes mellitus type: type 2 Qualified Code(s): E11.22 - Type 2 diabetes mellitus with diabetic chronic kidney disease; N18.30 - Chronic kidney disease, stage 3 unspecified (3) High cholesterol: Code(s): E78.00 - Pure hypercholesterolemia, unspecified Category: Medical (4) Bilateral primary osteoarthritis of knee: Code(s): M17.0 - Bilateral primary osteoarthritis of knee Category: Medical Plan 89 year old with [place] bilateral cerumen impaction. One hour spent attempting to clean both ears with resolution of right impaction partial clearing of left Referral to ENT placed Should be able to return to [facility] at this point Chronic medical conditions stable Orders: Orders Complete Blood Count Auto Diff 12/01/24 E11.22 - Type 2 diabetes mellitus with diabetic chronic kidney disease, E78.00 - Pure hypercholesterolemia, unspecified, M19.90 - Unspecified osteoarthritis, unspecified site, N18.30 - Chronic kidney disease, stage 3 unspecified, R41.3 - Other amnesia Lipid Panel 12/01/24 E11.22 - Type 2 diabetes mellitus with diabetic chronic kidney disease, E78.00 - Pure hypercholesterolemia, unspecified, M19.90 - Unspecified osteoarthritis, unspecified site, N18.30 - Chronic kidney disease, stage 3 unspecified, R41.3 - Other amnesia TSH reflex Free T4 12/01/24 E11.22 - Type 2 diabetes mellitus with diabetic chronic kidney disease, E78.00 - Pure hypercholesterolemia, unspecified, M19.90 - Unspecified osteoarthritis, unspecified site, N18.30 - Chronic kidney disease, stage 3 unspecified, R41.3 - Other amnesia Hemoglobin A1c 12/01/24 E11.22 - Type 2 diabetes mellitus with diabetic chronic kidney disease, E78.00 - Pure hypercholesterolemia, unspecified, M19.90 - Unspecified osteoarthritis, unspecified site, N18.30 - Chronic kidney disease, stage 3 unspecified, R41.3 - Other amnesia Microalbumin, Random (w Creat) 12/01/24 E11.22 - Type 2 diabetes mellitus with diabetic chronic kidney disease, N18.30 - Chronic kidney disease, stage 3 unspecified Comprehensive Met. Panel 12/01/24 E11.22 - Type 2 diabetes mellitus with diabetic chronic kidney disease, E78.00 - Pure hypercholesterolemia, unspecified, M19.90 - Unspecified osteoarthritis, unspecified site, N18.30 - Chronic kidney disease, stage 3 unspecified, R41.3 - Other amnesia
[2024-12-01 14:42] VITALS: BP 100/56; PULSE 62; RESP 14; O2SAT 95; BMI 23.3
== END 2024-12-01 15:42 | disposition home or self-care (01) ==
LOC: HO.HMCFM 14:15
PROVIDERS: PCP Internal Medicine; Visit Provider Internal Medicine
DX: H61.23 Impacted cerumen, bilateral (principal); E11.22 Type 2 diabetes mellitus with diabetic chronic kidney disease; N18.30 Chronic kidney disease, stage 3 unspecified; E78.00 Pure hypercholesterolemia, unspecified; M17.0 Bilateral primary osteoarthritis of knee

== ENCOUNTER → 2024-12-01 14:14 | Outpatient (BNVA) | payer MEDICARE, BC, SELFPAY | PROVIDERS: PCP Internal Medicine; Visit Provider Internal Medicine | DX: H61.23 Impacted cerumen, bilateral (principal); E78.00 Pure hypercholesterolemia, unspecified; J44.9 Chronic obstructive pulmonary disease, unspecified; M17.0 Bilateral primary osteoarthritis of knee; E11.22 Type 2 diabetes mellitus with diabetic chronic kidney disease; I12.9 Hypertensive chronic kidney disease with stage 1 through stage 4 chronic kidney disease, or unspecified chronic kidney disease; N18.30 Chronic kidney disease, stage 3 unspecified; Z87.891 Personal history of nicotine dependence; Z79.899 Other long term (current) drug therapy | CPT/HCPCS: 69210; 96127; 99212 ==

== ENCOUNTER 2024-12-22 10:48 | Outpatient (AMB) | payer MEDICARE, BC, SELFPAY ==
--- NOTE | 2024-12-22 11:04 | A.OFFVIS_ITS ---
Intake Vital Signs 12/22/24 11:25 Height 5 ft 6 in Weight 140 lb BMI 22.6 BP 96/42 L Blood Pressure Location Lt brachial Position Sitting Respiration 14 Pulse 34 L Pulse Source Pulse Oximeter Pulse Oximetry (%) 95 Oxygen Delivery Method Room Air Intake Visit Reasons: mawv Intake Note: Medical annual wellness visit Front Desk Specialist Required: No Allergies lisinopril Allergy (Verified 12/22/24 11:06) Unknown HPI HPI Comments History of Present Illness Details The patient is a 89-year-old male with a past medical history of d ementia, type 2 diabetes, hypertension, CKD, memory loss, AAA repair BPH, skin cancer, osteoarthritis presenting for MWV HRA reviewed Care team per HPI-ENT surgeons-has not seen for some time, pulm-[facility], ortho-[facility] not seeing He has been trying to get hearing aids from [employer] but they have been telling him that he has too much wax in his ears. His has been putting debrox drops in and trying to keep them clean. Flushed this month and curette empolyed with resolution of right sided cerumen but still some persistent left sided-looks clear today. they havent had time to return to [employer] Type 2 diabetes: Stable off medications. A1C pending [facility]. last on file 6.1%. Annual eye exam is up-to-date. Denies bothersome neuropathy Cardiovascular: Hypertension, AAA hyperlipidemia. On hydrochlorothiazide 25 mg daily, amlodipine 5 mg daily, pravastatin 80 mg daily. Allergy to lisinopril (lip swelling). Denies headache dizziness chest pain. Blood pressure is well controlled COPD: Evaluated and was following with pulmonary. Stable on current inhalers.. Chronic dyspnea which is stable. Had prior pfts, chest CT with evidence of moderate emphysema and perhaps chronic bronchitis. Memory loss: stable memory loss. continues donepezil-10mg His helps him to take care of his medications etc.. Musculoskeletal: Bilateral knee pain. Moderate to severe OA. Has has steroid and gel injections in the past. Stable. On topicals Health care decisions reviewed with patient. They want to review at home ROS see HPI PHYSICAL EXAM: GENERAL: Alert and oriented x 3. NAD EYES: EOMI. Anicteric. HENT: Moist mucous membranes. normal oropharynx LUNGS: Clear to auscultation bilaterally. CARDIOVASCULAR: Regular rate and rhythm. No murmur. No JVD. ABDOMEN: Soft, non-tender +bs EXTREMITIES: No edema. Non-tender. SKIN: No rashes or lesions. Warm. NEUROLOGIC: Apparent memory loss PSYCHIATRIC: Cooperative. Appropriate mood and affect [facility] Medical History Aneurysm Surgical History S/P cerebral aneurysm operation Family History Sister Dementia Sister Dementia Other FH: mental illness No pertinent family history Substance abuse Social History Household Members: Spouse Housing: House Are you a primary lawn care professional to a significant other at home: No 75 years or older and lives alone: No Alcohol intake: former Patient Tobacco Use Status: Former Tobacco user Tobacco use type: Cigarette Cigarette Packs Per Day: 1 Cigarettes Per Day: 20 Years Smoked: 20 e-Cigarette/Vaping Use: Never Used Second Hand Smoke Exposure: No service: Yes ([employer] 6 years) Current occupational status: retired and disabled Current occupation: rt hand Current occupational exposures/hazards: No Cognitive needs: Yes (Dementia) Hearing needs: Yes (need hearing aids) Vision needs: Yes (Has an eye doctor) Questionnaire Medicare Wellness Checkup What is your age?: 80 or older What gender do you identify with?: undetermined During the past 4 weeks, how much have you been bothered by emotional problems such as feeling anxious, depressed, irritable, sad or downhearted, and blue?: slightly During the past 4 weeks, has your physical & emotional health limited your social activities with family, friends, neighbors, or groups?: slightly During the past 4 weeks, how much bodily pain have you generally had?: mild pain During the past 4 weeks, was someone available to help you if you needed & wanted help?: yes, as much as I wanted During the past 4 weeks, what was the hardest physical activity you could do for at least 2 minutes?: light Can you get to places out of walking distance without help? (For eg., can you travel alone on buses, taxis or drive your car?): No Can you go shopping for groceries or clothes without someone's help?: No Can you prepare your own meals?: No Can you do your housework without help?: No Because of any health problems, do you need the help of another person with your personal care needs such as eating, bathing, dressing or getting around the house?: No Can you handle your own money without help?: No During the past 4 weeks, how would you rate your health in general?: good During the past 4 weeks how have things been going for you?: pretty well Are you having difficulties driving your car?: not applicable, I don't use a car Do you always fasten your seat belt when you are in a car?: yes, usually During past 4 weeks, have you been bothered by the following: never: Sexual problems? (N/A), Trouble eating well? and Teeth or denture problems?, seldom: Falling or dizzy when standing up and Problems using the telephone? and sometimes: Tiredness or fatigue? Have you fallen 2 or more times in the past year?: No Are you afraid of falling?: No Are you a smoker?: no During the past 4 weeks, how many drinks of wine, beer, or other alcoholic beverages did you have?: no alcohol at all Do you exercise for about 20 minutes 3 or more times a week?: yes, some of the time Have you been given information to help with the following?: no: Hazards in your house that might hurt you? and no: Keeping track of your medications? How often do you have trouble taking medicines the way you have been told to take them?: I always take medicine as prescribed How confident are you that you can control & manage most of your health problems?: not very confident What is your race?: White Mini Mental State Exam (MMSE) Orientation What is the (year) (season) (date) (day) (month)?: year (1990), season (spring) and date Where are we (state) (county) (town or city) (hospital) (floor)?: state ([place]), [facility] ([place]), town or city ([place]), hospital/clinic (hospital- unknown) and floor (first ) Registration Name of 3 unrelated objects clearly and slowly, then ask patient to repeat all 3 of them. (1st repeat determines score. Make sure they can repeat all three): object 1 (ball), object 2 (flag) and object 3 (tree) Language Show patient a wristwatch & ask what it is. Repeat for pencil.: watch and pencil Ask the patient to repeat the phrase 'No ifs, ands, or buts' after you.: incorrect Ask the patient to 'take a piece of paper with their right hand' 'fold paper in half' 'place paper on floor': take paper in right hand and fold paper in half Print the sentence 'CLOSE YOUR EYES' on a piece. If patient actually closes eyes then score.: followed written direction Give patient a blank piece of paper & ask to write a sentence. Score if it contains a noun & verb.: sentence contains subject and verb Ask patient to copy figure of intersecting pentagons exactly. Score if all 10 angles & 2 intersects are included.: all 10 angles present & 2 are intersected Score Score: 18 Activity of Daily Living Bathing - sponge bath, tub bath or shower: receives no assistance (gets in/out by self, if usual bathing means Dressing - getting clothes from closets & drawers, including inner/outer garments & fasteners.: gets clothes & gets completely dressed without help Toileting - going to the 'toilet room' for urine/bowel elimination & cleaning self/arranging clothes: goes to toilet room, cleans self, arranges clothes without help Transfer: moves in & out of bed and chair without help (may use support object) Continence: controls urination/bowel movements completely by self Feeding: feeds self without help Total Score: 0 Information obtained from: patient Using telephone: needs assistance Traveling: dependent Shopping: dependent Preparing meals: dependent Housework: needs assistance Taking medicine: needs assistance Managing money: needs assistance Physical Exam Vital Signs: Last Vital Signs Pulse 34 L 12/22/24 11:25 Resp 14 12/22/24 11:25 BP 96/42 L 12/22/24 11:25 Pulse Ox 95 12/22/24 11:25 Oxygen Delivery Method Room Air 12/22/24 11:25 BMI result Body Mass Index 22.6 Assessment & Plan Assessment & Plan (1) Encounter for subsequent annual wellness visit (AWV) in Medicare patient: Code(s): Z00.00 - Encounter for general adult medical examination without abnormal findings (2) Memory loss: Code(s): R41.3 - Other amnesia (3) High cholesterol: Code(s): E78.00 - Pure hypercholesterolemia, unspecified (4) Arthritis: Code(s): M19.90 - Unspecified osteoarthritis, unspecified site Plan MWV-no interval changes in health, capability. Ongoing memory issues, difficulty with hearing-going for hearing aids Coding Level of Care Code Medicare Subsequent (G0439) Diagnoses Encounter for subsequent annual wellness visit (AWV) in Medicare patient Z00.00 Memory loss R41.3 High cholesterol E78.00 Arthritis M19.90 Advance Care Planning Advance Care Planning discussion: Exists, not on file Date of discussion: 12/22/24 Who was present: patient and Forms completed: None (they took information home)
[2024-12-22 11:25] VITALS: BP 96/42; PULSE 34; RESP 14; O2SAT 95; BMI 22.6
--- OUTSIDE RECORDS SUMMARY | 2024-12-22 12:52 | XMS_ITS | Encounter Summary ---
Author Organization [employer] Address [address] [place] [address] Care Team Providers Care Recruiting Operations Consultant Name Role Phone Justen Damian MD Primary Care Provider Edda De La O MD Primary Care Provider [facility], Pcp [facility] Encounter Details Date Type Department Care Team Description 03/25/2015 Telephone Medicine/Pediatrics - [address] [id number] uJsten Damian MD Social History Tobacco Use Types Packs/Day Years Used Date Smoking Tobacco: Former Cigarettes 1.5 40 Q uit: 12/31/1992 Smokeless Tobacco: Never Alcohol Use Standard Drinks/Week Comments No 0 (1 standard drink = 0.6 oz pur e alcohol) Sex Assigned at Date Recorded Not on file Job Start Date Occupation Industry Not on file Not on file Not on file documented as of this encounter Miscellaneous Notes * Telephone Encounter - Justen Damian MD - 03/25/2015 5:19 PM EDT I called the patient and reviewed the x-ray findings. Back pain is better but not gone. If he's notimproving with the 2 medications in the next few weeks we can refer her to physical therapy or physiatry. I discussed the renal artery abnormality and that an ultrasound will help determine whether he might have aneurysm and we will schedule this. He had no other questions after we reviewed the purpose of the ultrasound. documented in this encounter Plan of Treatment Not on file documented as of this encounter Visit Diagnoses Diagnosis Abnormal radiographic examination- Primary Other nonspecific (abnormal) findings on radiological and other examinations of body structure documented in this encounter Care Teams Recruiting Operations Consultant Relationship Specialty Start Date End Date Justen Damian MD PCP - General 07/02/00 09/21/15 Edda Lew MD PCP - General Internal Medicine 09/22/15 12/08/20 [facility], Pcp PCP - General 12/09/20 documented as of this encounter
--- OUTSIDE RECORDS SUMMARY | 2024-12-22 12:52 | XMS_ITS | Clinical Summary ---
Author Organization [facility] Address [address] [place] [address] Care Team Providers Care Senior Stock Plan Administrator Name Role Phone Community, Pcp Primary Care Provider Unavailabl e Allergies Active Allergy Reactions Severity Noted Date Comments Lisinopril Swelling/Edema High 07/17/2018 Medications Medication Sig Dispensed Refills Start Date End Date Status MULTI-DAY VITAMINS OR QD 0 Act alberto SB LOW DOSE ASA EC 81 MG OR TBEC 1 TABLET DAILY 0 Active VITAMIN C 500 MG OR TABS 1 PO QD 0 Active Coenzyme Q10 (COQ-10) 100 MG CAPS Take by mouth. 0 Active Cholecalciferol (VITAMIN D OR) Take 1,000 Units by mouth daily. 0 Active tamsulosin (FLOMAX) 0.4 MG 24 hr capsule TAKE 1 CAPSULE BY MOUTH 1/2 HOUR AFTER THE LAST MEAL OF THE DAY 0 09/29/2019 Active ONE TOUCH ULTRASOFT LANCETS MiscIndications:Contro lled type 2 diabetes mellitus without complication, without long-term current use of insulin ([facility]) CHECK BLOOD SUGAR ONCE DAILY 100 Each 3 12/01/2019 Active hydrochlorothiazide (HYDRODIURIL) 25 MG tabletIndications:Esse ntial hypertension Take 1 Tab by mouth daily. 90 Tab 1 06/11/2020 Active omeprazole (PRILOSEC) 20 MG capsule Take 1 Cap by mouth daily. 90 Cap 1 06/29/2020 Active pravastatin (PRAVACHOL) 80 MG tablet Take 1 Tab by mouth daily. 90 Tab 1 08/10/2020 Active amlodipine (NORVASC) 5 MG tablet Take 1.5 Tabs by mouth daily. 45 Tab 0 11/15/2020 Active Active Problems Patient Care Coordination No te Formatting of this note is d ifferent from the original. Checking Your Blood Sugars Please check your blood sugars every day. Please check your sugars at the following times of day: before breakfast and before dinner Your Blood Sugar Goals Pre Meal: 90-130 2 hours after meals: 110-160 Bedtime: 110-150 Use the Results ?? Bring your glucometer to every appointment ?? Write your fingerstick blood sugars down on a log sheet or record book. Bring them to your appointment ?? Look for patterns in the numbers. The results help you and your provider make decisions about your diabetes treatment plan. Your Results and your Goals Your Result / Date of Completion Your Goal / How Often to Assess Component Value Date HGBA1C 6.5 08/31/2014 Less than 7%--- 2-4 times per year BP Readings from Last 1 Encounters: 09/08/14 130/74 Less than 130/80--- once per year Component Value Date LDL 81 06/01/2014 LDL less than 100--- once per year Component Value Date MALBUR 5.4 06/01/2014 Less than 30--- once per year Wt Readings from Last 1 Encounters: 09/08/14 159 lb (72.122 kg) Your goal weight by next visit: 158 --- reassess 2-4 times a year Health Maintenance Due Topic Date Due ? ? Colon Cancer Screening 08/02/2014 ? ? Diabetes: Annual Care Plan 09/01/2014 ? ? Depression Screen 09/01/2014 ? ? Fall Risk Assessment 09/01/2014 Your Action Plan Your diabetes is well controlled and no changes are required to your current plan. Check blood glucose as directed and write down all results. Check feet for sores every day Contact me if you experience any barriers to care such as inability to purchase your medication, difficulty getting to your appointments or difficulty understanding your care plan Please get your yearly flu shot When to Call your Healthcare Provider If your blood sugar falls below 70 and you do not know why or you become unconscious If you are sick and unable to take liquids because or nausea or vomiting If you have a fever over 101 If your blood sugar is 300 or higher on greater than 3 separate occasions during the same week If you are just unsure what to do Educational Resources [place] Diabetes Association (www.diabetes.org) Centers for Disease Control and Prevention (www.cdc.gov/diabetes) This care plan was created in collaboration with Joe Guzman on 09/08/2014 Problem Noted Date Microalbuminuria 01/02/2019 Right thigh pain 03/29/2016 CKD (chronic kidney disease), stage III 12/23/2015 Overview: Dr Ríos Essential hypertension 06/22/2015 History of actinic keratoses 02/16/2010 Overview: Actinic keratosis 01/12 right ear (hypertrophic, irritated) 02/03 right ear (hypertrophic) Diverticulosis of colon (without mention of hemorrhage) 08/06/2009 Overview: Diagnosed on colonoscopy 08/04 Hematuria 02/16/2009 Overview: NEG w/u Dr Patino 1997 ARMD (age related macular degeneration) 11/11/2008 Cataract 11/11/2008 Overview: Early cataracts History of basal cell carcinoma 07/09/20 08 Overview: BCC 07/04 back (superficial & nodular type) Type 2 diabetes mellitus, controlled History of colonic polyps 05/01/2007 Overview: Adenonma - Colonoscopy 04/02 Cataract 12/13/2006 Pure hypercholesterolemia 04/25/2006 Esophageal reflux 04/25/2006 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 04/25/2006 Overview: Repair 08/27 IMO update Resolved Problems Problem Noted Date Resolved Date HTN (hypertension) 05/01/2012 06/22/2015 Immunizations Name Administration Dates Next Due COVID-19 (Pfizer) Pt Reported 10/26/2020, 021 Influenza (> 6 Months) 07/24/2016,2014,06/09/2014,05/20,05/01/2012,06/05/2011,06/29/2010 ,05/07/2009,07/07/2008 Influenza vaccine high dose age 65 and over 05/26/2020,05/20/2019,05/20/2018,09/11 /2017 Pneumoccoccal(Adult) Polysac charide PPSV23 02/09/2004 Pneumococcal Conjugate PCV-13 12/15/2014 TD (STATE SUPPLIED FOR ADULT S AND CHILDREN) 02/17/2013 TETANUS/DIPTHERIA (ADULT) 02/09/2004 Family History Relation Name Status Comments Brother 1 (Age 61) Cancer radha g Brother 2 Alive 3 healthy Father (Age 69) Cancer eso phagus Maternal Grandfather UK Maternal Grandmother DM Mother (Age 70) DM, Paternal Grandfather UK Paternal Grandmother UK Sister 1 (Age 74) Dementia Sister 2 (Age 48) UK Sister 3 dementia Sister 4 Alive 3 healthy x 1 h tn Social History Tobacco Use Types Packs/Day Years Used Date Smoking Tobacco: Former Cigarettes 1.5 40 Q uit: 12/31/1992 Smokeless Tobacco: Never Alcohol Use Standard Drinks/Week Comments No 0 (1 standard drink = 0.6 oz pur e alcohol) Sex Assigned at Date Recorded Not on file Job Start Date Occupation Industry Not on file Not on file Not on file Last Filed Vital Signs Vital Sign Reading Time Taken Comments Blood Pressure 140/78 06/28/2021 9:54 AM EDT Pulse 73 06/28/2021 9:54 AM EDT Temperature 36.7 ??C (98.1 ??F) 09/02/2021 10:[address] Respiratory Rate 16 06/28/2021 9:54 AM EDT Oxygen Saturation 98% 02/02/2017 8:41 AM EDT Inhaled Oxygen Concentration - - Weight 70.1 kg (154 lb 9.6 oz) 06/28/2021 9:54 A M EDT Height 166.4 cm (5' 5.5 ) 06/28/2021 9:54 AM EDT Body Mass Index 25.34 06/28/2021 9:54 AM EDT Plan of Treatment Health Maintenance Due Date Last Done Comments SHINGLES VACCINE (1 of 2) 1987 DTAP/TDAP/TD (1 - Tdap) 02/18/2013 02/17/2013 DIABETES: ANNUAL EYE EXAM 01/18/20192017, 12/22/2016, 12/07/2015 (External Completion), Additional history exists DIABETES: BLOOD SUGAR CONTRO L TEST (HGBA1C) 12/19/2019 09/19/2019, 05/12/2019, 12/26/2018, Additional history exists DIABETES: ANNUAL FOOT EXAM 01/18/202001/17, 01/16/2018, 07/24/2016, Additional history exists DIABETES/HEART DISEASE: RAVI AL CHOLESTEROL (LDL) 05/12/2020 05/12/2019, 12/26/2018, 09/09/2018, Additional history exists DEPRESSION SCREEN 06/12/2020 06/12/2019, , 01/30/2017, Additional history exists FALL RISK ASSESSMENT 06/12/2020 06/12/2019, 05/20/2018, 01/30/2017, Additional history exists DIABETES: ANNUAL URINE PROTE IN TEST (MICROALBUMIN) 04/22/2021 04/22/2020, 09/19/2019, 07/04/2019, Additional history exists Covid-19 Vaccine (2022- 4 season) 2024 10/26/2020, 09/30/2020 BMI CHECK/ADVISE 08/27/2024 INFLUENZA (Season Ended) 2025 020, 05/20/2019, 05/20/2018, Additional history exists PNEUMOCOCCAL VACCINE Completed 12/15/2014, 02/09/20 04 Care Teams Senior Stock Plan Administrator Relationship Specialty Start Date End Date Community, Pcp PCP - General 12/09/20
--- OUTSIDE RECORDS SUMMARY | 2024-12-22 12:52 | XMS_ITS | Encounter Summary ---
Author Organization [facility] Address [address] [place] [address] Care Team Providers Care Equipment Service Technician Name Role Phone Justen Damian MD Primary Care Provider Unavail able Edda Lew MD Primary Care Provider Unavaila thong [facility], Pcp Primary Care Provider Unavailabl e Encounter Details Date Type Department Care Team Description 04/09/2009 [facility] Medical Records [address] [place] [id number] Sara Mancera MD Social History Tobacco Use Types Packs/Day [...] on file documented as of this encounter Plan of Treatment Not on file documented as of this encounter Visit Diagnoses Not on filedocumented in this encounter Care Teams Equipment Service Technician Relationship Specialty Start Date End Date Justen Damian MD PCP - General 07/02/00 09/21/15 Edda Lew MD PCP - General Internal Medicine 09/22/15 12/08/20 [facility], Pcp PCP - General 12/09/20 documented as of this encounter
--- OUTSIDE RECORDS SUMMARY | 2024-12-22 12:52 | XMS_ITS | Encounter Summary ---
Author Organization [facility] Address [address] [place] [address] Care Team Providers Care Inventory Assistant Name Role Phone Edda Lew MD Primary Care Provider Darshan benito [facility], Pcp Primary Care Provider Stanislav rosenthal Encounter Details Date Type Department Care Team Description 01/31/2016 Commissary Worker Report Medical Records [address] [place] [address] Shayna Cortez MD Social History Tobacco Use Types Packs/Day [...] on filedocumented in this encounter Care Teams Inventory Assistant Relationship Specialty Start Date End Date Edda Lew MD PCP - General Internal Medicine 09/22/15 12/08/20 [facility], Pcp PCP - General 12/09/20 documented as of this encounter
--- OUTSIDE RECORDS SUMMARY | 2024-12-22 12:52 | XMS_ITS | Encounter Summary ---
Author Organization [facility] Address [address] [place] [address] Care Team Providers Care Presiding Judge Name Role Phone Justen Damian MD Primary Care Provider Unavail able Edda Lew MD Primary Care Provider Unavaila thong [facility], Pcp Primary Care Provider Unavailabl e Encounter Details Date Type Department Care Team Description 10/04/2007 [facility] Medical Records [address] [place] [id number] Fabian Sims Social History Tobacco Use Types Packs/Day Years [...] on filedocumented in this encounter Care Teams Presiding Judge Relationship Specialty Start Date End Date Justen Damian MD PCP - General 07/02/00 09/21/15 Edda Lew MD PCP - General Internal Medicine 09/22/15 12/08/20 [facility], [facility] PCP - General 12/09/20 documented as of this encounter
--- OUTSIDE RECORDS SUMMARY | 2024-12-22 12:52 | XMS_ITS | Encounter Summary ---
Author Organization [facility] Address [address] [place] [address] Care Team Providers Care International Relations Teacher Name Role Phone Edda Lew MD Primary Care Provider Darshan benito [facility], Pcp Primary Care Provider Stanislav rosenthal Encounter Details Date Type Department Care Team Description 10/21/2018 Business Doc Medical Records [address] [place] [id number] Abstract, Provider Social History Tobacco Use Types Packs/Day Years [...] on filedocumented in this encounter Care Teams International Relations Teacher Relationship Specialty Start Date End Date Edda Lew MD PCP - General Internal Medicine 09/22/15 12/08/20 [facility], Pcp PCP - General 12/09/20 documented as of this encounter
--- OUTSIDE RECORDS SUMMARY | 2024-12-22 12:52 | XMS_ITS | Encounter Summary ---
Author Organization [employer] [facility] Address [address] [place] [address] Care Team Providers Care Guest Services Officer Name Role Phone Justen Damian MD Primary Care Provider Unavail able Edda Lew MD Primary Care Provider Unavaila thong [facility], Pcp Primary Care Provider Unavailabl e Encounter Details Date Type Department Care Team Description 11/16/2009 [facility] Milling Superintendent Report Medical Records [address] [place] [id number] Trevor Lawrence Social History Tobacco Use Types Packs/Day Years Used Date Smoking Tobacco: Former Cigarettes 1.5 40 Q uit: 12/31/1992 Alcohol Use Standard Drinks/Week Comments No 0 [...] on filedocumented in this encounter Care Teams Guest Services Officer Relationship Specialty Start Date End Date Justen Damian MD PCP - General 07/02/00 09/21/15 Edda Lew MD PCP - General Internal Medicine 09/22/15 12/08/20 [facility], Pcp PCP - General 12/09/20 documented as of this encounter
--- OUTSIDE RECORDS SUMMARY | 2024-12-22 12:52 | XMS_ITS | Encounter Summary ---
Author Organization [employer] [facility] Address [address] [place] [address] Care Team Providers Care Embedded Case Manager Name Role Phone Edda Lew MD Primary Care Provider Darshan [facility], Pcp Primary Care Provider [facility] Encounter Details Date Type Department Care Team Description 04/18/2017 Orders Only Medicine/Pediatrics - [address] [id number] Edda Lew MD Chronic kidney disease, stage III (moderate) (Primary Dx); Impaired fasting glucose Social History Tobacco Use Types Packs/Day Years [...] on file documented as of this encounter Results * HEMOGLOBIN A1C (04/18/2017 9:27 AM EDT) Glycosylated Hemoglobin A1C 5.9 4.0 - 6.0 % 04/18/2017 12:55 PM EDT [facility] Comment: HbA1C VALUES MAY NOT ACCURATELY REFLECT MEAN BLOOD GLUCOSE IN PATIENTS WITH HEMOGLOBIN VARIANTS SUCH HbF, HbS. 04/18/2017 9:27 AM EDT 04/18/2017 9:27 AM EDT Edda Lew MD LAB [facility] [address] [facility] documented in this encounter Visit Diagnoses Diagnosis Chronic kidney disease, stage III (moderate) (HCC)- Primary Chronic kidney disease, Stage III (moderate) Impaired fasting glucose documented in this encounter Care Teams Embedded Case Manager Relationship Specialty Start Date End Date Edda Lew MD PCP - General Internal Medicine 09/22/15 12/08/20 [facility], Pcp PCP - General 12/09/20 documented as of this encounter
--- OUTSIDE RECORDS SUMMARY | 2024-12-22 12:52 | XMS_ITS | Encounter Summary ---
Author Organization [facility] Address [address] [place] [address] Care Team Providers Care Cardiovascular Invasive Specialist Name Role Phone Edda Lew MD Primary Care Provider Darshan benito [facility], Pcp Primary Care Provider Stanislav rosenthal Encounter Details Date Type Department Care Team Description 11/15/2020 [facility] Supervisor Report Medical Records [address] [place] [id number] Hiro Torres MD Social History Tobacco Use Types Packs/Day [...] on filedocumented in this encounter Care Teams Cardiovascular Invasive Specialist Relationship Specialty Start Date End Date Edda Lew MD PCP - General Internal Medicine 09/22/15 12/08/20 [facility], Pcp PCP - General 12/09/20 documented as of this encounter
--- OUTSIDE RECORDS SUMMARY | 2024-12-22 12:52 | XMS_ITS | Encounter Summary ---
Author Organization [employer] [facility] Address [address] [place] [address] Care Team Providers Care Entrepreneurship Program Director Name Role Phone Edda Lew MD Primary Care Provider Darshan benito [facility], Pcp Primary Care Provider Stanislav rosenthal Encounter Details Date Type Department Care Team Description 07/02/2017 Release of Information Medical Records [address] [place] [id number] Abstract, Provider Social History Tobacco Use Types [...] on filedocumented in this encounter Care Teams Entrepreneurship Program Director Relationship Specialty Start Date End Date Edda Lew MD PCP - General Internal Medicine 09/22/15 12/08/20 [facility], Pcp PCP - General 12/09/20 documented as of this encounter
== END 2024-12-22 12:21 | disposition home or self-care (01) ==
LOC: HO.HMCFM 10:49
PROVIDERS: PCP Internal Medicine; Visit Provider Internal Medicine
DX: Z00.00 Encounter for general adult medical examination without abnormal findings (principal); R41.3 Other amnesia; E78.00 Pure hypercholesterolemia, unspecified; M19.90 Unspecified osteoarthritis, unspecified site

== ENCOUNTER → 2024-12-22 10:48 | Outpatient (BNVA) | payer MEDICARE, BC, SELFPAY | PROVIDERS: PCP Internal Medicine; Visit Provider Internal Medicine | DX: Z13.89 Encounter for screening for other disorder (principal) ==

== ENCOUNTER 2025-03-09 08:43 | Outpatient (AMB) | payer MEDICARE, BC, SELFPAY ==
[2025-03-09 08:45] VITALS: BMI 22.6
--- NOTE | 2025-03-09 08:45 | MHC.OFFVIS ---
Vital Signs 03/09/25 08:45 Height 5 ft 6 in Weight 140 lb BMI 22.6 Intake Visit Reasons: Bilateral Durolane Injections Intake Note: Joe is an 89 year old male who presents today for Bilateral Knee Durolane Injections. Patient present today with son who reports that the last Durolane injection was quite helful. Allergies lisinopril Allergy (Verified 03/09/25 08:52) Unknown HPI HPI Bilateral Durolane Injections: Details: Joe is an 89 year old male who presents today for Bilateral Knee Durolane Injections. Patient present today with son who reports that the last Durolane injection was quite helful. [facility] Medical History Aneurysm Surgical History S/P cerebral aneurysm operation Family History Sister Dementia Sister Dementia Other FH: mental illness No pertinent family history Substance abuse Social History Household Members: Spouse Housing: House Are you a primary career transition specialist to a significant other at home: No 75 years or older and lives alone: No Alcohol intake: former Patient Tobacco Use Status: Former Tobacco user Tobacco use type: Cigarette Cigarette Packs Per Day: 1 Cigarettes Per Day: 20 Years Smoked: 20 e-Cigarette/Vaping Use: Never Used Second Hand Smoke Exposure: No service: Yes ([employer] 6 years) Current occupational status: retired and disabled Current occupation: rt hand Current occupational exposures/hazards: No Cognitive needs: Yes (Dementia) Hearing needs: Yes (need hearing aids) Vision needs: Yes (Has an eye doctor) Physical Exam Vital Signs: BMI result Body Mass Index 22.6 Extrem Other: skin c/d/i Office Procedures Joint Inj/Aspir; Non-Pain Clin Joint Injection/Drain Details: Injected Durolane. Site was prepped using aseptic technique. Patient tolerated the procedure well. Shoulders, Hips, Knees, Knee Large Joint Injection [id number]: Bilateral Knee Coding Procedure code (CPT) selection complete Assessment & Plan Assessment & Plan (1) Bilateral primary osteoarthritis of knee: Code(s): M17.0 - Bilateral primary osteoarthritis of knee Category: Medical Plan: Bilateral Ailin injections. Patient tolerated these well. Coding Level of Care Code Est Pt Level 2 (22423) Diagnoses Bilateral primary osteoarthritis of knee M17.0 CPT Codes Shoulders, Hips, Knees, - Knee Large Joint Injection : Bilateral Knee ([id number])
== END 2025-03-09 09:07 | disposition home or self-care (01) ==
LOC: HO.HOS 08:43
PROVIDERS: PCP Internal Medicine; Visit Provider Orthopaedic Surgery
DX: M17.0 Bilateral primary osteoarthritis of knee (principal)
CPT/HCPCS: 20610

== ENCOUNTER → 2025-03-09 08:43 | Outpatient (BNVA) | payer MEDICARE, BC, SELFPAY | PROVIDERS: PCP Internal Medicine; Visit Provider Orthopaedic Surgery | DX: M17.0 Bilateral primary osteoarthritis of knee (principal); Z79.899 Other long term (current) drug therapy | CPT/HCPCS: 20610; J7318 ==

== ENCOUNTER 2025-06-05 09:09 | Outpatient (REF) | payer MEDICARE, BC, SELFPAY ==
--- OUTSIDE RECORDS SUMMARY | 2025-06-05 09:34 | XMS_ITS | Clinical Summary ---
Author Organization [facility] Address [address] [place] [address] Phone Care Team Providers Care Rn Invasive Name Role Phone Edda Lew MD Primary Care Provider Allergies Active Allergy Reactions Criticality Noted Date Comments Lisinopril Swelling High 07/17/2018 Medications amLODIPine (NORVASC) 5 MG tablet 2 Active donepeziL (ARICEPT) 5 MG tablet 2 Active pravastatin (PRAVACHOL) 80 MG tablet 2 Active tamsulosin (FLOMAX) 0.4 mg Cap TAKE 1 CAPSULE EVERY DAY -TAKE 1/2 HOUR AFTER THE LAST MEAL OF THE DAY 2 Active hydroCHLOROthia zide (HYDRODIURIL) 25 MG tablet 2 Active omeprazole (PRILOSEC) 20 MG capsule Take 20 mg by mouth daily. Active multivitamin per tablet Take by mouth. Acti ve coenzyme Q10 100 mg capsule Take 100 mg by mouth daily. Active aspirin 81 MG EC tablet Take 81 mg by mouth daily. Active ascorbic acid, vitamin C, (VITAMIN C) 250 MG tablet Take 250 mg by mouth daily. Active albuterol 90 mcg/actuation inhaler Inhale 2 puffs into the lungs every 6 (six) hours as needed for wheezing. Active BEVESPI AEROSPHERE 9-4.8 mcg inhaler 4 Active CHOLECALCIFEROL , VITAMIN D3, ORAL Take 1,000 Units by mouth daily. Active ciprofloxacin HCl (CILOXAN) 0.3 % ophthalmic solution Administer 1 drop, every 2 hours, while awake, for 2 days. Then 1 drop, every 4 hours, while awake, for the next 5 days. 5 mL Active Active Problems Problem Noted Date Diagnosed Date Cyst of skin 09/01/2022 ARMD (age related macular degeneration) 11/12/19 09 Cataract 12/13/2006 Overview (04/13/2024): Early cataracts Family History Medical History Relation Comments Cancer Father Heart disease Mother Relation Status Comments Father Mother Social History Tobacco Use Types Packs/Day Years Used Date Smoking Tobacco: Former Cigarettes 1 24 1 958 - 1981 Smokeless Tobacco: Never Alcohol Use Standard Drinks/Week Comments Not Currently 0 (1 standard drink = 0.6 oz pur e alcohol) Education Answer Date Recorded Are you interested in more education? Not on jesse e 12/23/2022 Are you concerned about learning? Not on file 12/23/2022 No 12/23/2022 No 12/23/2022 Digital Access Answer Date Recorded No 01/16/2023 No 01/16/2023 No 01/16/2023 Reliable internet access at home? Not on file 01/16/2023 Device with a working camera? Not on file Sex and Gender Information Value Date Recorded Sex Assigned at Not on file Legal Sex Male 1:47 PM EDT Gender Identity Not on file Sexual Orientation Not on file Last Filed Vital Signs Vital Sign Reading Time Taken Comments Blood Pressure 134/76 04/13/2024 1:38 PM EDT Pulse 61 04/13/2024 1:38 PM EDT Temperature - - Respiratory Rate 15 04/13/2024 1:38 PM EDT Oxygen Saturation 97% 04/13/2024 1:38 PM EDT Inhaled Oxygen Concentration - - Weight 67.1 kg (148 lb) 04/13/2024 1:38 PM EDT Height 170.2 cm (5' 7 ) 04/13/2024 1:38 PM EDT Body Mass Index 23.18 04/13/2024 1:38 PM EDT Plan of Treatment Health Maintenance Due Date Last Done Comments POTASSIUM LEVEL 1937 DEPRESSION SCREENING 1949 ZOSTER VACCINES (1 of 2) 1987 INFLUENZA VACCINE (#1) 2025 , 06/20/2022, 06/13/2021, Additional history exists COVID-19 VACCINE ( season) 2025 09/08/2023, 05/18/2023, 09/29/2022, Additional history exists Adult Td,Tdap Booster 03/10/2027 03/10/2017 , 02/17/2013, 02/09/2004 PNEUMOCOCCAL VACCINES (50+ years) Completed 10/31/2022, 12/15/2014, 02/09/2004 RSV VACCINE Completed 07/30/2023 HEPATITIS A VACCINES Aged Out No long er eligible based on patient's age to complete this topic HIB VACCINES Aged Out No longer eligi ble based on patient's age to complete this topic MENINGOCOCCAL VACCINES (ACWY) Aged Out No longer eligible based on patient's age to complete this topic MENINGOCOCCAL VACCINES (B) Aged Out N o longer eligible based on patient's age to complete this topic Medical Devices Not on file Insurance MEDICARE PART A & B [facility] MEDEX SUPPLEMENT MEDICARE PART A & B [employer] MEDEX SUPPLEMENT MEDICARE PART A & B [employer] [place] [address] MEDICARE PART A & B [employer] MEDEX SUPPLEMENT MEDICARE PART A & B [employer] MEDEX SUPPLEMENT MEDICARE PART A & B [employer] MEDEX SUPPLEMENT MEDICARE PART A & B MEDEX [facility]PPLE[facility] [place] MEDICARE PART A & B [employer]OSS MEDEX SUPPLEMENT MEDICARE PART A & B [employer] MEDEX SUPPLEMENT Care Teams Rn Invasive Relationship Specialty Start Date End Date Edda Lew MD PCP - General Internal Medicine 02/01/22 Additional Source Comments The information contained in this document represents components of the legal health record. It is not the complete legal health record.[facility]
[2025-06-05 11:00] LABS: MANUAL DIFF FLAG NO
[2025-06-05 11:14] LABS: Hematocrit 36.1 % (42.0-52.0); Hemoglobin 11.7 g/dl (14.0-18.0); Imm Gran Abs Auto 0.04 X10*3/uL (0.00-0.03); Imm Gran Pct Auto 0.5 % (0.0-0.4); Lymphocytes Absolute Auto 0.8 X10*3/uL (1.2-4.9); Mean Corpuscular HGB Conc 32.4 g/dl (31.0-36.0); Mean Corpuscular Hemoglobin 31.9 pg (27.0-33.0); Mean Corpuscular Volume 98.4 fL (80.0-98.0); NRBC Abs Auto 0.000 X10*3/uL (0.0-0.012); NRBC Pct Auto 0.0 /100WBC (0.0-0.2); Platelet Count 172 X10*3/uL (160-400); Red Blood Count 3.67 X10*6/uL (4.60-5.80); White Blood Count 7.5 X10*3/uL (4.8-10.8)
[2025-06-05 11:47] LABS: Alanine Aminotransferase 12 U/L (0-40); Albumin Level 3.9 g/dL (3.5-5.0); Alkaline Phosphatase 73 U/L (39-117); Anion Gap 11 (12-20); Aspartate Amino Transferase 30 U/L (5-37); Blood Urea Nitrogen 27 mg/dL (9-16); Calcium 9.1 mg/dL (8.4-10.2); Carbon Dioxide 31 mmol/L (22-29); Chloride 103 mmol/L (96-108); Cholesterol 146 mg/dL (<200); Estimated Glomerular Filt Rate 54; HDL Cholesterol 58 mg/dL (>40); Potassium 3.6 mmol/L (3.3-5.1); Sodium 141 mmol/L (135-145); Total Protein 6.8 g/dL (6.5-8.0); Triglycerides 112 mg/dL (<150)
[2025-06-05 11:50] LABS: Microalbum/Creatinine Ratio Ur 157.0 ug/mg cr (<30)
== END 2025-06-05 09:10 | disposition home or self-care (01) ==
LOC: HO.WFDLDS 09:09
PROVIDERS: Visit Provider Internal Medicine
DX: E11.22 Type 2 diabetes mellitus with diabetic chronic kidney disease (principal); N18.30 Chronic kidney disease, stage 3 unspecified; E78.00 Pure hypercholesterolemia, unspecified; M19.90 Unspecified osteoarthritis, unspecified site; R41.3 Other amnesia
CPT/HCPCS: 36415; 80053; 80061; 82043; 82570; 83036; 84443; 85025

== ENCOUNTER 2025-06-22 11:09 | Outpatient (AMB) | payer MEDICARE, BC, SELFPAY ==
--- NOTE | 2025-06-22 11:21 | A.OFFPC_ITS ---
Vital Signs 06/22/25 11:27 Height 5 ft 6 in Weight 143 lb 4 oz BMI 23.1 BP 122/64 Blood Pressure Location Rt brachial Position Sitting Respiration 16 Pulse 74 Pulse Source Pulse Oximeter Temp 97.7 F Temp Source Oral Pulse Oximetry (%) 96 Oxygen Delivery Method Room Air Intake Visit Reasons: f/up diabetes BP Intake Note: f/u diabetes, bp Allergies lisinopril Allergy (Verified 06/22/25 11:25) Unknown Tobacco use date assessed: 06/22/25 Fall risk assessment: No Falls in past year Last assessed Fall Risk: 06/22/25 Dental Screening Dental Screen Date: 06/22/25 Did you have a dental visit in the last 12 months?: No Did you have a dental problem in the last 6 months where you did not have access to dental care?: No Was dental information given to patient?: Patient has dentist HPI HPI Comments History of Present Illness Details The patient is a 89-year-old male with a past medical history of dementia, type 2 diabetes, hypertension, CKD, memory loss, AAA repair BPH, skin cancer, osteoarthritis presenting for follow up Type 2 diabetes: Stable off medications. A1C 5.9% Annual eye exam is up-to-date. Cardiovascular: Hypertension, AAA hyperlipidemia. On hydrochlorothiazide 25 mg daily, amlodipine 5 mg daily, pravastatin 80 mg daily. Allergy to lisinopril (lip swelling). Denies headache dizziness chest pain. COPD: [facility] pulm. Chronic dyspnea which is stable. Had prior pfts, chest CT with evidence of moderate emphysema and chronic bronchitis. Memory loss: stable memory loss. continues donepezil-10mg His helps him to take care of his medications etc.. Musculoskeletal: Bilateral knee pain. Moderate to severe OA. Saw ortho since his last visit ROS see HPI PHYSICAL EXAM: GENERAL: Alert and oriented x 3. NAD EYES: EOMI. Anicteric. HENT: Moist mucous membranes. normal oropharynx LUNGS: Clear to auscultation bilaterally. CARDIOVASCULAR: Regular rate and rhythm. No murmur. No JVD. ABDOMEN: Soft, non-tender +bs EXTREMITIES: No edema. Non-tender. SKIN: No rashes or lesions. Warm. NEUROLOGIC: Apparent memory loss PSYCHIATRIC: Cooperative. Appropriate mood and affect [facility] Medical History Aneurysm Surgical History S/P cerebral aneurysm operation Family History Sister Dementia Sister Dementia Other FH: mental illness No pertinent family history Substance abuse Social History Household Members: Spouse Housing: House Are you a primary care tech to a significant other at home: No 75 years or older and lives alone: No Alcohol intake: former Patient Tobacco Use Status: Former Tobacco user Tobacco use type: Cigarette Cigarette Packs Per Day: 1 Cigarettes Per Day: 20 Years Smoked: 20 e-Cigarette/Vaping Use: Never Used Second Hand Smoke Exposure: No service: Yes ([employer] 6 years) Current occupational status: retired and disabled Current occupation: rt hand Current occupational exposures/hazards: No Cognitive needs: Yes (Dementia) Hearing needs: Yes (need hearing aids) Vision needs: Yes (Has an eye doctor) Questionnaire Thrive Questionnaire Date Thrive assessed: 12/01/24 I am a: Patient What is your living situation today?: I have a steady place to live Within the past 12 months, did the food you bought not last and you didn't have the money to get more?: Never true Within the past 12 months, did you worry whether your food would run out before you got money to buy more?: Never true Do you have trouble paying for medicines?: No Do you have trouble getting transportation to medical appointments?: No Do you have trouble paying your heating and electricity bill?: No Do you have trouble taking care of your child, family member or friend?: Yes Do you have trouble with day-to-day activities such as bathing, preparing meals, shopping, managing finances, etc.?: I choose not to answer this question Are you currently unemployed and looking for a job?: I choose not to answer this question Are you interested in more education?: No Please select the resources that you would like help with: None Currently or been in a relationship where the following occur: I choose not to answer THRIVE Score: 0 LEWIS-7 AMB Questionnaire LEWIS-7 Date LEWIS - 7 assessed: 10/21/24 Source: Developed by Drs. Pelon Toscano, Silvia Fontana, Quique Rhodes and colleagues, with an educational yael from [employer]. Physical exam (Primary Care) Vital Signs: Last Vital Signs Temp 97.7 F 06/22/25 11:27 Pulse 74 06/22/25 11:27 Resp 16 06/22/25 11:27 BP 122/64 06/22/25 11:27 Pulse Ox 96 06/22/25 11:27 Oxygen Delivery Method Room Air 06/22/25 11:27 BMI result Body Mass Index 23.1 Tobacco/Smoking Status: Tobacco use Status Tobacco use date assessed 06/22/25 06/22/25 11:31 Patient Tobacco Use Status Former Tobacco user 06/22/25 11:27 Tobacco use type Cigarette 06/22/25 11:27 e-Cigarette/Vaping Use Never Used 06/22/25 11:27 Thrive Assessment: Date of Thrive Assessment Date Thrive assessed 12/01/24 06/22/25 11:21 Currently or been in a relationship where the following occur: I choose not to answer Coding Level of Care Code Est Pt Level 4 (56544) Complex EM visit Add On G2211 Diagnoses Type 2 diabetes mellitus with stage 3 chronic kidney disease, without long-term current use of insulin, unspecified whether stage 3a or 3b CKD E11.22; N18.30 Diabetes mellitus type: type 2 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 Diabetes mellitus complication status: with kidney complications Diabetes mellitus complication detail: with chronic kidney disease Chronic kidney disease stage: stage 3 (moderate) Chronic kidney disease stage 3 subtype: unspecified whether 3a or 3b High cholesterol E78.00 Bilateral primary osteoarthritis of knee M17.0 Memory loss R41.3 Assessment & Plan Assessment & Plan (1) Diabetes mellitus: Code(s): E11.9 - Type 2 diabetes mellitus without complications Category: Medical Qualifiers: Diabetes mellitus type: type 2 Diabetes mellitus intermodal owner operator truck driver insulin use: without intermodal owner operator truck driver use Diabetes mellitus complication status: with kidney complications Diabetes mellitus complication detail: with chronic kidney disease Chronic kidney disease stage: stage 3 (moderate) Chronic kidney disease stage 3 subtype: unspecified whether 3a or 3b Qualified Code(s): E11.22 - Type 2 diabetes mellitus with diabetic chronic kidney disease; N18.30 - Chronic kidney disease, stage 3 unspecified (2) High cholesterol: Code(s): E78.00 - Pure hypercholesterolemia, unspecified Category: Medical (3) Bilateral primary osteoarthritis of knee: Code(s): M17.0 - Bilateral primary osteoarthritis of knee Category: Medical (4) Memory loss: Code(s): R41.3 - Other amnesia Category: Medical Plan 89 year old male presenting for follow up Diabetes is well controlled. Minimize carb/sweets CV: Blood pressure is well controlled Dementia is fairly stable since last visit. continue donepezil BPH-on tamsulosin Orders: Orders Lipid Panel 4 Months E11.22 - Type 2 diabetes mellitus with diabetic chronic kidney disease, N18.30 - Chronic kidney disease, stage 3 unspecified Hemoglobin A1c 4 Months E11.22 - Type 2 diabetes mellitus with diabetic chronic kidney disease, N18.30 - Chronic kidney disease, stage 3 unspecified Comprehensive Met. Panel 4 Months E11.22 - Type 2 diabetes mellitus with diabetic chronic kidney disease, N18.30 - Chronic kidney disease, stage 3 unspecified Referrals Dermatology Referral L30.9 - Dermatitis, unspecified Medications: New betamethasone valerate 0.1% 1 appl topical BID PRN 45 grams 3RF skin irritation
[2025-06-22 11:27] VITALS: BP 122/64; PULSE 74; RESP 16; TEMP 36.5; O2SAT 96; BMI 23.1
--- OUTSIDE RECORDS SUMMARY | 2025-06-22 14:15 | XMS_ITS | Clinical Summary ---
Author Organization [facility] Address [address] [place] [address] Phone Care Team Providers Care Assembler Product Name Role Phone Edda Lew MD Primary [...] file Insurance MEDICARE PART A & B [facility] MEDEX SUPPLEMENT MEDICARE PART A & B [employer] SUPPLEMENT MEDICARE PART A & B [employer] [place] [address] MEDICARE PART A & B [employer] MEDEX SUPPLEMENT MEDICARE PART A & B [email or web address] MEDEX SUPPLEMENT MEDICARE PART A & B [email or web address] MEDEX SUPPLEMENT MEDICARE PART A & B [facility]EX [facility]PPLE[facility] [place] [place] MEDIC[facility] PART A & B [employer] MEDEX SUPPLEMENT MEDICARE PART A & B [employer] MEDEX SUPPLEMENT Care Teams Assembler Product Relationship Specialty Start Date End Date Edda Lew MD PCP - General Internal Medicine 02/01/22 Additional Source Comments The information contained in this document represents components of the legal health record. It is not the complete legal health record.[facility]
== END 2025-06-22 12:19 | disposition home or self-care (01) ==
LOC: HO.HMCFM 11:10
PROVIDERS: PCP Internal Medicine; Visit Provider Internal Medicine
DX: E11.22 Type 2 diabetes mellitus with diabetic chronic kidney disease (principal); N18.30 Chronic kidney disease, stage 3 unspecified; E78.00 Pure hypercholesterolemia, unspecified; M17.0 Bilateral primary osteoarthritis of knee; R41.3 Other amnesia

== ENCOUNTER → 2025-06-22 11:09 | Outpatient (BNVA) | payer MEDICARE, BC, SELFPAY | PROVIDERS: PCP Internal Medicine; Visit Provider Internal Medicine | DX: E11.22 Type 2 diabetes mellitus with diabetic chronic kidney disease (principal); I12.9 Hypertensive chronic kidney disease with stage 1 through stage 4 chronic kidney disease, or unspecified chronic kidney disease; N18.30 Chronic kidney disease, stage 3 unspecified; E78.00 Pure hypercholesterolemia, unspecified; M17.0 Bilateral primary osteoarthritis of knee; R41.3 Other amnesia; J44.9 Chronic obstructive pulmonary disease, unspecified; Z79.899 Other long term (current) drug therapy | CPT/HCPCS: 99212 ==